=== PATIENT | female | born 1945 | race Caucasian/White ===

== ENCOUNTER 2025-02-23 05:33 | Inpatient (IN) ==
[2025-02-23] MEDS ORDERED: MAGNESIUM HYDROXIDE SUSP 30 ML UDC PO PRN (13:08)
[2025-02-23] MEDS ORDERED: ACETAMINOPHEN 325 MG TAB PO PRN (13:08)
[2025-02-23] MEDS ORDERED: NALOXONE HCL 0.4 MG/1 ML VIAL/CARP IV PRN (13:08)
--- NOTE | 2025-02-23 13:18 | History & Physical Report ---
Date of Service February 23, 2025 Assessment & Plan (1) Displaced fracture of right femoral neck: (2) Alcohol withdrawal: (3) Anemia: (4) Abdominal pain: (5) Diastolic heart failure: (6) Hypertension: (7) Hypercholesteremia: (8) Hypothyroidism: Plan 79 year old female with PMH significant for HFrEF, CAD, hypothyroidism, hypertension, hyperlipidemia, asymptomatic carotid artery stenosis, peripheral vascular disease, recurrent cellulitis, depression and anxiety who presented to [facility] On 02/23/2025 as a direct admit transferred from [facility] for a right hip fracture. Displaced fracture of right femoral neck Hip fracture due to fall at home Ortho consulted and recommending OR for hip hemiarthroplasty Tentative OR tomorrow pending medical clearance Bedrest/NWB RLE preop NPO, gentle fluids given HF PT/OT Pain control with IV tylenol and morphine PRN Alcohol withdrawal Patient notes daily intake of at least 18oz of wine Last drink around 0000 CIWA protocol Ativan PRN per CIWA scores Folic acid and thiamine Anemia Hematemesis Hgb drop from 7.9 at OSH to 7.3-> 7.2 here Per records previous Hgb around 10.7 outpatient Episode of emesis concerning for hematemesis KUB with nonobstructive bowel gas pattern Type and screen; blood consent obtained Iron profile WNL Vitamin B12 and folate pending IV protonix bid Trend H&H q6hr Consider GI consult for possible EGD if hgb continues to drop Abdominal pain Patient reported one episode of severe RUQ pain last night that has since resolved Appreciated tenderness on palpation Obtain liver ultrasound LFTs and lipase WNL CKD Per records previous creatinine 1.6 Creat 1.36 on admission HFrEF CAD Hypertension Hyperlipidemia Records obtained from [facility] Underwent cardiac cath during [facility] hospitalization 02/2024 which showed mild nonobstructive CAD, EF 40-45% at that time started on GDMT Last echo on 03/12/2024: EF 35-40%, moderate hypokinesis of entire myocardium, left atrium severely dilated, mild mitral annulus calcification, grade II diastolic dysfunction Continue Entresto, furosemide, spironolactone, metoprolol, atorvastatin Peripheral vascular disease Recent B/L LE arterial duplex revealed peripheral arterial disease of the lower extremities L > R, ROMI 0.39 on R and 0.93 on L Vascular mass noted in R groin/proximal thigh musculature measuring 16 x 3 x 7 cm done on 12/13/23, angiogram revealed Significant R SFA disease 80-90% managed medically She also has known moderate stenosis of the right external carotid artery Takes Plavix for this - holding for possible OR tomorrow Depression and anxiety Continue duloxetine and ativan PRN Hypothyroidism Continue levothyroxine Recurrent cellulitis On ciprofloxacin for this No evidence of cellulitis on exam DVT Prophylaxis: SCDs Code Status: FULL CODE - As per discussion at bedside with the patient. PCP: Ml Fragoso Disposition: transfer to PCU given alcohol withdrawal protocol Patient seen in collaboration with Dr Gomez. Please see addendum. I spent a total of 75 minutes coordinating, documenting and providing care for this patient excluding time spent in the performance of separately billed services or time spent by another provider/QHP. Admission and Anticipated Discharge Date Admission Date: February 23, 2025 History of Present Illness Chief Complaint: fall Primary Care Provider: Ml Fragoso MD 79 year old female with PMH significant for HFrEF, CAD, hypothyroidism, hypertension, hyperlipidemia, asymptomatic carotid artery stenosis, peripheral vascular disease, recurrent cellulitis, depression and anxiety who presented to [facility] On 02/23/2025 as a direct admit transferred from [facility] for a right hip fracture. Patient reports that she was folding and putting away laundry last night when she fell onto her right hip. Believes that she did hit her head but denies any loss of consciousness. Denies feeling dizzy or lightheaded prior to fall. Denies falling over any object. Admits she was drinking wine last night. After falling, she was unable to get herself up and used her watch to call her daughter for assistance. Her daughter arrived and called 911 and she was taken to [facility]. Records reviewed from [facility]: -CT head without contrast: 1. No evidence of acute intracranial abnormality is demonstrated 2. Chronic microvascular ischemic changes-stable 3. Cerebral atrophy-stable -XR hip 1 V w AP pelvis right: 1. Subcapital fracture right femoral neck with impaction 2. Diffuse osteoporosis 3. Interval new -CT spine cervical without contrast: 1. No acute fracture or subluxation in the cervical spine 2. Cervical spondylosis-stable 3. Old compression collapse with anterior wedging of T2 vertebral body -CBC: WBC 8.4, RBC 2.57, Hgb 7.9, Hct 25, MCV 97.3, MCH 30.7, MCHC 31.6, RDW-SD 53, RDW-CV 15.1, Plt 293, MPV 9.8 -CMP: eGFR 38, Glu 140, BUN 29, Creatinine 1.4, Protein 7.3, Albumin 3.8, Nancy bulin 3.5, Calcium 9.2, Total Bili 0.2, Sodium 138, Potassium 3.9, Chloride 109, CO2 19, Alk Phos 82, AST 23, ALT 26 -Mag 2.2 -Ethanol level: 147 Patient was examined at bedside. She reports 7/10 pain in her right hip. Was feeling nauseous and did vomit dark brown emesis. Notes she had an episode of severe RUQ pain last night that resolved spontaneously. Denies headache, dizziness, chest pain, SOB, abdominal pain, diarrhea. Reports she takes plavix but denies anticoagulation. Notes she used to fall a lot but this has been better lately. Lives at home alone. Uses a walker and a cane for ambulation. Admits to smoking cigarettes daily and daily alcohol use consisting of 2 glasses of wine. Also takes ativan as needed for tremors less than daily. Patient's daughter arrived and shared that patient was hospitalized about 1.5 years ago for CHF and flash pulmonary edema. Has been doing better since being started on heart medications. Follows with Cardiology through [facility] in [place]. Daughter notes cognitive decline since this hospitalization but notes that patient is at her baseline. Agrees that patient has not fallen recently, previous to admission 1.5 years ago was falling frequently. Notes she has extensive vascular disease in her right leg that patient follows with Dr Nelson for and was recommended to have vascular surgery, which patient declined. Also reports patient drinks a lot of wine daily and has gone through elective withdrawal in the past. Denies alcohol withdrawal seizures. Allergies Allergy/AdvReac Type Severity Reaction Status Date / Time metformin Allergy Mild Diarrhea Verified 02/23/25 14:51 ezetimibe [From Vytorin] Allergy Unknown Verified 02/23/25 14:38 lactose Allergy Unknown Diarrhea Verified 02/23/25 14:38 linagliptin [From Tradjenta] Allergy Unknown Diarrhea Verified 02/23/25 14:38 meperidine [From Demerol] Allergy Unknown Vomiting Verified 02/23/25 14:38 simvastatin [From Vytorin] Allergy Unknown Verified 02/23/25 14:38 chlorhexidine Allergy Rash Verified 02/23/25 14:51 erythromycin base Allergy Nausea Verified 02/23/25 14:51 paroxetine [From Paxil] AdvReac Unknown hostility Verified 02/23/25 14:38 Home Medications Medication Instructions Recorded Confirmed Type atorvastatin 40 mg tablet 40 mg PO DAILY 02/23/25 02/23/25 History ciprofloxacin HCl 500 mg tablet 500 mg PO Q12H 02/23/25 02/23/25 History (Cipro) clopidogrel 75 mg tablet 75 mg PO DAILY 02/23/25 02/23/25 History coQ10 (ubiquinol) 100 mg capsule 100 mg PO BID 02/23/25 02/23/25 History duloxetine 30 mg capsule,delayed 30 mg PO DAILY 02/23/25 02/23/25 History release ferrous gluconate 324 mg (38 mg 324 mg PO DAILY 02/23/25 02/23/25 History iron) tablet furosemide 20 mg tablet 20 mg PO DAILY 02/23/25 02/23/25 History levothyroxine 50 mcg tablet 50 mcg PO DAILY 02/23/25 02/23/25 History lorazepam 0.5 mg tablet 0.5 mg PO DAILY PRN rls 02/23/25 02/23/25 History magnesium glycinate 100 mg (as 200 mg PO DAILY 02/23/25 02/23/25 History glycinate) tablet metoprolol succinate 25 mg 25 mg PO DAILY 02/23/25 02/23/25 History tablet,extended release 24 hr sacubitril 49 mg-valsartan 51 mg 1 tab PO BID 02/23/25 02/23/25 History tablet (Entresto) spironolactone 25 mg tablet 25 mg PO DAILY 02/23/25 02/23/25 History tiotropium bromide 2.5 2 inh inhalation QAM PRN 02/23/25 02/23/25 History mcg/actuation mist for inhalation sob/wheezing (Spiriva Respimat) vitamin B complex 1 cap PO DAILY 02/23/25 02/23/25 History Past Med/Surg History Problem List (Updated 02/23/25 @ 15:19 by STEVE Dillon) Anemia Anxiety Depression Abdominal pain Alcohol withdrawal Displaced fracture of right femoral neck Varicose vein of leg Diastolic heart failure Carotid stenosis, asymptomatic Hypothyroidism Hypercholesteremia Hypertension Medical History (Updated 02/23/25 @ 15:19 by STEVE Dillon) Diabetes mellitus Idiopathic polyneuropathy Ulnar neuropathy at elbow of left upper extremity Muscle weakness (generalized) Arthritis Surgical History History of hysterectomy Hx of appendectomy Hx of tonsillectomy Family History Father Myocardial infarction Sister Lung cancer Social History (Updated 02/23/25 @ 15:15 by STEVE Dillon) Smoking Status: Current every day smoker Tobacco Type: Cigarettes Cigarettes Per Day: 15; Hx Alcohol Use: Yes Alcohol type: wine Alcohol Intake Frequency: 4 or More x per/Week Alcohol Intake Frequency Comment: two glasses daily Hx Substance Use: No Preferred Language: Australian Nurse Administrator Required: No Beliefs That Will Affect Care: None Current Living Situation: Alone Feels Safe at Home: Yes Assistive Devices: Cane, Glasses and Walker Review of Systems Review of Systems: All systems reviewed & are unremarkable except as noted in HPI & below Physical Exam Physical Exam: General/Psych: WD/WN, sitting up in bed, NAD, conversing easily, easily distracted, difficult completing thoughts Head: normocephalic, atraumatic Eyes: normal inspection, PERRL, conjunctivae pink, anicteric sclerae ENT: external ear and nose normal, oropharynx normal Neck: normal visual inspection, trachea midline Respiratory: normal respiratory effort, lungs with expiratory wheezing appreciated, no accessory muscle use Cardiovascular: regular rate and rhythm, no murmur/rub/gallop, no JVD Extremities: no cyanosis or clubbing, normal peripheral pulses, no BLE edema Abdomen/GI: normal bowel sounds, soft, tender on palpation of RUQ : Mills in place Neurologic/MSK: A+Ox3, moves all extremities, sensation intact BLE, unable to move right leg Skin: no rashes, normal color, warm and dry Results & Data Results & Data Vital Signs (Past 12 Hours) Vital Signs Temp Resp BP Pulse Ox O2 Del Method 02/23/25 13:06 36.9 C 17 153/64 H 97 Room Air Laboratory Results Short CBC 07/22/25 Range/Units 14:10 WBC 7.80 (4.8-10.8) K/ul Hgb 7.3 L (12.0-16.0) g/dl Hct 23.5 L (37.0-47.0) % Plt Count 266 (130-400) K/uL BMP 02/23/25 14:10 Sodium 139 Potassium 4.3 Chloride 109 H Carbon Dioxide 23 BUN 31 H Creatinine 1.36 H Glucose 124 H Calcium 9.3 Liver Function 02/23/25 Range/Units 14:10 Total Bilirubin 0.4 (0.2-1.0) mg/dl AST 17 (13-39) U/L ALT 13 (7-52) U/L Alkaline Phosphatase 65 (34-104) U/L Albumin 4.1 (3.4-5.0) gm/dl I have independently reviewed and interpreted patient's admitting labs including CBC, CMP ECG Additional Comments: I have independently reviewed and interpreted patient's admitting EKG which revealed: NSR at a rate of 70 bpm Code Status & VTE Plan Code Status Full Code VTE Prophylaxis Plan VTE Prophylaxis will be ordered: Yes Supervising Physician Co-Signing Physician Notes I have seen and discussed the case with the collaborating advanced practitioner. I agree with the above H&P. I have reviewed and confirmed the patients medical history, the findings on physical examination, and the patients diagnosis and treatment plan with Felipe WILSON and agree with the information documented. In short, Ms Reyes is an 79 year old female with PMH significant for CHF, hypothyroidism, hypertension, hyperlipidemia, asymptomatic carotid artery stenosis, depression and anxiety who is a direct admit for right hip fracture. She drinks atleast 3-4 glasses of wine daily and sustained a fall. She states she has been tapered off of alcohol in the past and denies any history of acute withdrawal complications like seizures. Patient is a bit confused, but oriented to self, place, situation and time. Her last drink was midnight. She reports extreme confusion with gabapentin. Will transfer to PCU ( but house in ICU incase phenobarbital needed). No signs of withdrawal at this time. Reports of hematemesis, will keep npo, IV PPI BID, anemia labs, consult GI. I spent a total of 35 minutes coordinating, documenting, and providing care for this patient excluding time spent in the performance of separately billed services. All of the aforementioned completed outside of collaborating with the assigned advanced practitioner for a full treatment plan. I have reviewed the advanced practitioner's documentation, and I agree with, and take responsibility for the plan of care
[2025-02-23] MEDS: ONDANSETRON INJ 2 MG/ML 2 ML VIAL IV PRN (13:45)
[2025-02-23 14:26] LABS: Hematocrit (blood only) 23.5 % (37.0-47.0); Hemoglobin 7.3 g/dl (12.0-16.0); Immature Granulocytes # (auto) 0.04 K/uL (0.01-0.20); Immature Granulocytes % (auto) 0.5 %; Mean Corpuscular Hemoglobin 30.0 pg (25.0-34.0); Mean Corpuscular Volume 96.7 fL (80.0-100.0); Platelet Count 266 K/uL (130-400); RDW Standard Deviation 53.5 fL (36.4-46.3); Red Blood Count 2.43 M/uL (4.20-5.40); White Blood Count 7.80 K/ul (4.8-10.8)
[2025-02-23] MEDS ORDERED: MoRPHine SULFATE 2 MG/ML CARP IV PRN (14:44)
[2025-02-23 14:47] LABS: Alanine Aminotransferase 13.0 U/L (7-52); Albumin Globulin Ratio 1.6 (0.9-2); Alkaline Phosphatase 65.0 U/L (34-104); Anion Gap 7.0 (3-11); Bilirubin,Total 0.4 mg/dl (0.2-1.0); Blood Urea Nitrogen 31.0 mg/dl (6-23); Calcium 9.3 mg/dl (8.6-10.3); Carbon Dioxide 23.0 mmol/L (21-32); Chloride 109.0 mmol/L (98-107); Creatinine Clr Calc Pharmacy 26.8 ml/min; Globulin 2.5 gm/dl (2.5-4.0); Glucose 124.0 mg/dl (70-99(Fasting)); Potassium 4.3 mmol/L (3.5-5.1); Sodium 139.0 mmol/L (136-145); Total Protein 6.6 gm/dl (6.0-8.3)
[2025-02-23 15:06] LABS: RBC Morphology Unremarkable
--- NOTE | 2025-02-23 15:07 | Orthopedic Consultation ---
Date of Service February 23, 2025 Assessment & Plan (1) Displaced fracture of right femoral neck: * Case/imaging reviewed and discussed with Dr Verdugo * Recommend OR for hip hemiarthroplasty * Tentative OR 02/24 pending medical clearance * Bedrest/nonweightbearing preop * N.p.o. midnight * Disposition: TBD * Daily treatment: Physical Therapy/ Occupational Therapy per protocol * Weight bearing status: NWB * Pain control * Remainder care per primary team History of Present Illness Reason for Consultation: Right hip pain Requesting Physician: . Attending Physician: Haris Mcclain MD . Patient is a 79y/o female with right hip pain. PMH including heart failure, carotid stenosis, hypothyroid, diabetes, hypercholesterolemia, HTN. Presents to hospital with right hip pain after a fall. Per report patient fell at home last night, significant right hip pain, unable to ambulate. Initially brought to [facility] in [place], workup including x-ray right hip demonstrating displaced femoral neck fracture, transferred to [facility] for orthopedic consultation. Currently admitted to hospital medicine team, orthopedics consulted for management recommendations. At time of exam patient lying comfortably in bed, no acute distress. Endorses mild to moderate pain of the right hip that increases with attempted use. Denies tingling numbness of the right lower extremity. No assistive devices at baseline.. Allergies Allergy/AdvReac Type Severity Reaction Status Date / Time metformin Allergy Mild Diarrhea Verified 02/23/25 14:51 ezetimibe [From Vytorin] Allergy Unknown Verified 02/23/25 14:38 lactose Allergy Unknown Diarrhea Verified 02/23/25 14:38 linagliptin [From Tradjenta] Allergy Unknown Diarrhea Verified 02/23/25 14:38 meperidine [From Demerol] Allergy Unknown Vomiting Verified 02/23/25 14:38 simvastatin [From Vytorin] Allergy Unknown Verified 02/23/25 14:38 chlorhexidine Allergy Rash Verified 02/23/25 14:51 erythromycin base Allergy Nausea Verified 02/23/25 14:51 paroxetine [From Paxil] AdvReac Unknown hostility Verified 02/23/25 14:38 Home Medications Medication Instructions Recorded Confirmed Type atorvastatin 40 mg tablet 40 mg PO DAILY 02/23/25 02/23/25 History ciprofloxacin HCl 500 mg tablet 500 mg PO Q12H 02/23/25 02/23/25 History (Cipro) clopidogrel 75 mg tablet 75 mg PO DAILY 02/23/25 02/23/25 History coQ10 (ubiquinol) 100 mg capsule 100 mg PO BID 02/23/25 02/23/25 History duloxetine 30 mg capsule,delayed 30 mg PO DAILY 02/23/25 02/23/25 History release ferrous gluconate 324 mg (38 mg 324 mg PO DAILY 02/23/25 02/23/25 History iron) tablet furosemide 20 mg tablet 20 mg PO DAILY 02/23/25 02/23/25 History levothyroxine 50 mcg tablet 50 mcg PO DAILY 02/23/25 02/23/25 History lorazepam 0.5 mg tablet 0.5 mg PO DAILY PRN rls 02/23/25 02/23/25 History magnesium glycinate 100 mg (as 200 mg PO DAILY 02/23/25 02/23/25 History glycinate) tablet metoprolol succinate 25 mg 25 mg PO DAILY 02/23/25 02/23/25 History tablet,extended release 24 hr sacubitril 49 mg-valsartan 51 mg 1 tab PO BID 02/23/25 02/23/25 History tablet (Entresto) spironolactone 25 mg tablet 25 mg PO DAILY 02/23/25 02/23/25 History tiotropium bromide 2.5 2 inh inhalation QAM PRN 02/23/25 02/23/25 History mcg/actuation mist for inhalation sob/wheezing (Spiriva Respimat) vitamin B complex 1 cap PO DAILY 02/23/25 02/23/25 History Past Med/Surg History Problem List (Updated 02/23/25 @ 15:19 by STEVE Dillon) Anemia Anxiety Depression Abdominal pain Alcohol withdrawal Displaced fracture of right femoral neck Varicose vein of leg Diastolic heart failure Carotid stenosis, asymptomatic Hypothyroidism Hypercholesteremia Hypertension Medical History (Updated 02/23/25 @ 15:19 by STEVE Dillon) Diabetes mellitus Idiopathic polyneuropathy Ulnar neuropathy at elbow of left upper extremity Muscle weakness (generalized) Arthritis Surgical History History of hysterectomy Hx of appendectomy Hx of tonsillectomy Family History Father Myocardial infarction Sister Lung cancer Social History (Updated 02/23/25 @ 15:15 by STEVE Dillon) Smoking Status: Current every day smoker Tobacco Type: Cigarettes Cigarettes Per Day: 15; Hx Alcohol Use: Yes Alcohol type: wine Alcohol Intake Frequency: 4 or More x per/Week Alcohol Intake Frequency Comment: two glasses daily Hx Substance Use: No Preferred Language: Mauritian Secondary History Teacher Required: No Beliefs That Will Affect Care: None Current Living Situation: Alone Feels Safe at Home: Yes Assistive Devices: Cane, Glasses and Walker Review of Systems All systems reviewed & are unremarkable except as noted in HPI & below. Physical Exam . * General: Alert and oriented, no acute distress * Constitutional: well-developed, well-nourished. * Respiratory: Normal respiratory effort, no distress * Gastrointestinal: No tenderness to palpation, no rigidity or guarding. * Skin: No rash or lesion. * Neurologic: Grossly normal * Musculoskeletal: Right lower extremity shortened and externally rotated. Otherwise no obvious deformity or overlying skin changes to the right leg. TTP diffusely proximal thigh and lateral hip region. Otherwise no specific tenderness of the distal thigh, knee, lower leg, foot/ankle. Pain with logroll, otherwise ROM hip not assessed. AROM foot/ankle intact. Sensation intact plantar/dorsal foot. Brisk capillary fill. Results & Data Results & Data Laboratory Results . 02/23/25 14:10 WBC 7.80 RBC 2.43 L Hgb 7.3 L Hct 23.5 L MCV 96.7 MCH 30.0 MCHC 31.1 L RDW Std Deviation 53.5 H RDW Coeff of Magdy 15.0 H Plt Count 266 MPV 9.5 Immature Gran % (Auto) 0.5 Neut % (Auto) 82.7 Lymph % (Auto) 8.2 [place] % (Auto) 7.2 Eos % (Auto) 0.4 Baso % (Auto) 1.0 Neut # (Auto) 6.45 Lymph # (Auto) 0.64 L [place] # (Auto) 0.56 Eos # (Auto) 0.03 Baso # (Auto) 0.08 Immature Gran # (Auto) 0.04 Sodium 139 Potassium 4.3 Chloride 109 H Carbon Dioxide 23 Anion Gap 7 BUN 31 H Creatinine 1.36 H Est Cr Clr Drug Dosing 26.8 eGFR 39.13 BUN/Creatinine Ratio 22.8 H Glucose 124 H Calcium 9.3 Total Bilirubin 0.4 AST 17 ALT 13 Alkaline Phosphatase 65 Total Protein 6.6 Albumin 4.1 Globulin 2.5 Albumin/Globulin Ratio 1.6 Diagnostic Findings External report X-ray right hip: Displaced femoral neck fracture PG Care Time/CCT Total # of Minutes Spent Total Time Spent with Patient: Total time spent is greater than 50% in coordination of care (as documented) at patient's floor/unit and/or counseling patient: [place] [address] IN/OBS CONSULT LVL 5,80M Patient Type New Medical Decision Making Moderate Complexity Diagnoses Displaced fracture of right femoral neck S72.001A
--- NOTE | 2025-02-23 16:13 | XRay Report ---
Study: Pelvis 1 view, right femur 2 view History: Pre-op Comparison: None Findings/impression: Fracture of the right femoral neck with foreshortening. Joint spaces are well maintained. There is no joint effusion or significant soft tissue swelling. Bone mineralization is decreased. Prominent vascular calcifications. Electronically signed by Fabrice Jaramillo 02-23-2025 4:13 PM
[2025-02-23 16:33] LABS: Hematocrit (blood only) 22.9 % (37.0-47.0); Hemoglobin 7.2 g/dl (12.0-16.0)
[2025-02-23 16:34] LABS: Reticulated Hemoglobin 30.8 pg (28.2-36.6); Reticulocytes # 0.130 10^6/uL (0.020-0.100)
--- NOTE | 2025-02-23 16:43 | XRay Report ---
Abdominal radiograph, one view History: Abdominal pain Comparison: None Findings: Single AP view of the abdomen performed. The bowel gas pattern appears nonobstructive. No pneumatosis or portal venous gas. No abnormal calcifications project over the abdomen. Right femoral neck fracture again seen. Degenerative changes of the spine. Impression: Nonobstructive bowel gas pattern Electronically signed by Fabrice Jaramillo 02-23-2025 4:43 PM
[2025-02-23 16:47] LABS: Iron 38.0 mcg/dl (35-150); Lipase 14.0 U/L (11-82); Total Iron Binding Cap Calc 447.0 mcg/dl (250-450); Transferrin 319.0 mg/dl (200-360); Transferrin (FE) Percent Satur 9.0 % (15-50)
[2025-02-23 17:00] LABS: INR 0.9 (0.9-1.1); Prothrombin Time 10.3 Seconds (9.0-12.0)
[2025-02-23 17:08] LABS: Ferritin 20.5 ng/ml (8-388)
[2025-02-23 17:14] LABS: Folate (Folic Acid),Ser orPlas 12.28 ng/ml (>5.38)
[2025-02-23 17:15] LABS: Vitamin B12 388.0 pg/ml (180-914)
[2025-02-23] MEDS: THIAMINE HCL 100 MG in SYRINGE 9 ML IV STA (17:16)
[2025-02-23] MEDS ORDERED: LORazepam 0.5 MG TAB PO PRN (17:16)
[2025-02-23] MEDS: SODIUM CHLORIDE 0.9% 1,000 ML IV SCH (17:17)
[2025-02-23] MEDS: IRON SUCROSE 300 MG in SODIUM CHLORIDE 0.9% 250 ML IV ONE (17:56)
--- NOTE | 2025-02-23 19:49 | Ultrasound Report ---
Clinical history: Right upper quadrant pain Technique: Sonography was performed of the right upper quadrant of the abdomen Findings: There is suspected mild fatty infiltration of the liver. No definite liver mass is seen. There is normal directional flow in the main portal vein There is no evidence of cholelithiasis or cholecystitis. The gallbladder has a normal wall thickness and no adjacent fluid is seen. No definite sonographic Samano sign was detected. There is no definite intrahepatic bile duct dilatation. The common bile duct measures up to 7 mm, which is 90 dilated. No clear obstructing lesion is seen The right kidney appears unremarkable. There is no hydronephrosis. No definite renal calculus or mass is seen The visualized pancreas, aorta, and IVC appear unremarkable. No ascites is seen Impression: 1. Mild fatty infiltration of the liver 2. Normal-appearing gallbladder 3. Mild bile duct dilatation. No clear obstructing lesion is identified Electronically signed by Zaire Ruiz 02-23-2025 7:48 PM
[2025-02-23] MEDS: MoRPHine SULFATE 2 MG/ML CARP IV PRN (20:26)
[2025-02-23] MEDS: VALSARTAN/SACUBITRIL 51/49 MG TAB PO SCH (20:27)
[2025-02-23] MEDS: PANTOprazole 40 MG/10 ML SYR IV SCH (20:27)
[2025-02-24 00:03] LABS: Hematocrit (blood only) 22.6 % (37.0-47.0); Hemoglobin 6.9 g/dl (12.0-16.0)
[2025-02-24] MEDS ORDERED: SODIUM CHLORIDE 0.9% 100 ML IV PRN ×3 (00:03→14:55)
[2025-02-24] MEDS: LEVOTHYROXINE SODIUM 50 MCG TABLET PO SCH (05:14)
[2025-02-24 05:18] LABS: Hematocrit (blood only) 27.7 % (37.0-47.0); Hemoglobin 8.7 g/dl (12.0-16.0); Immature Granulocytes # (auto) 0.04 K/uL (0.01-0.20); Immature Granulocytes % (auto) 0.6 %; Mean Corpuscular Hemoglobin 30.6 pg (25.0-34.0); Mean Corpuscular Volume 97.5 fL (80.0-100.0); Platelet Count 236 K/uL (130-400); RDW Standard Deviation 52.9 fL (36.4-46.3); Red Blood Count 2.84 M/uL (4.20-5.40); White Blood Count 7.09 K/ul (4.8-10.8)
[2025-02-24 05:35] LABS: Anion Gap 6.0 (3-11); Blood Urea Nitrogen 24.0 mg/dl (6-23); Calcium 8.6 mg/dl (8.6-10.3); Carbon Dioxide 20.0 mmol/L (21-32); Chloride 113.0 mmol/L (98-107); Creatinine Clr Calc Pharmacy 30.7 ml/min; Glucose 97.0 mg/dl (70-99(Fasting)); Magnesium 1.9 mg/dl (1.7-2.4); Potassium 4.2 mmol/L (3.5-5.1); Sodium 139.0 mmol/L (136-145)
[2025-02-24] MEDS: FOLIC ACID 1 MG TAB PO SCH (08:09)
[2025-02-24] MEDS: METOPROLOL SUCC 25MG EXT REL TAB PO SCH (08:09)
[2025-02-24] MEDS: FERROUS GLUCONATE 324 MG TAB PO SCH (08:09)
[2025-02-24] MEDS: THIAMINE HCL 100 MG TAB PO SCH (08:09)
[2025-02-24] MEDS: MAGNESIUM OXIDE 400 MG TAB PO SCH (08:09)
[2025-02-24] MEDS: ATORVASTATIN 40 MG TAB PO SCH (08:09)
--- NOTE | 2025-02-24 09:15 | Gastrointestinal Consultation ---
Date of Consultation February 24, 2025 Assessment & Plan (1) Anemia: 79 year old female with history of anxiety, depression, hypothyroidism, HTN, HFrEF, CAD, hyperlipidemia, asymptomatic carotid artery stenosis, peripheral vascular disease, recurrent cellulitis admitted for management of a right hip fracture - GI was asked to evaluate for GI bleed. 1. Coffee ground emesis/hematemesis w/ anemia requiring transfusion NPO EGD evaluation - Risks, benefits, alternative discussed IV PPI bolus/drip Trend HGB Monitor and document GI output Transfuse PRN 2. ABD pain, CBD dilation - CBD 7 mm - LFTs normal - Pain resolved - If returns, recommend MRCP imaging We appreciate assistance in the management of any serological abnormality and corrections to include: hemoglobin >7, INR <2, platelets >50,000, potassium levels >3.5 but <5.3, and sodium levels within 5 points of the reference range prior to endoscopic evaluation. Thank you for allowing us to participate in the care of this patient. Please call with any acute changes, questions or concerns. Please see addendum below with additional recommendation from my supervising physician. I spent a total of 60 minutes on the date of service in review of patient's record, and previously obtained information in person and appropriate medical visit, discussion and education of plan, with patient and/or caregiver, placing orders for tests/referral/procedures as medically necessary and documentation of pertinent clinical information in patient's medical records for their visit today. Supervising Physician Co-Signing Physician Notes Hip fracture. The patient is also had coffee-ground emesis. She states she has been having heartburn indigestion leading up to this. Had purchased some Pepto- Bismol [id number]. This could account for the dark emesis. Blood counts however dropped somewhat which could again be related to her hip fracture. However patient is on Plavix she will likely get perioperative anticoagulation I think an EGD would be helpful to evaluate risk of gastrointestinal bleeding with surgery and anticoagulation. Discussed risks and benefits with the patient she is agreeable to proceed today. History of Present Illness Reason for Consultation: coffee ground emesis Requesting Physician: Ty Merida DO Attending Physician: Ty Merida DO History of Present Illness 79 year old female with history of anxiety, depression, hypothyroidism, HTN, HFrEF, CAD, hyperlipidemia, asymptomatic carotid artery stenosis, peripheral vascular disease, recurrent cellulitis admitted for management of a right hip fracture - GI was asked to evaluate for GI bleed. Pt was seen and evaluated, chart reviewed. She is somewhat of a poor historian. Suggests prior to arrival at our facility she had extreme nausea w/ emesis. She notes the first 2/3 emesis were food/bile. But later she saw vomit that appeared to be coffee ground and also mixed with some bright red blood. She notes she has had dark stools "all summer." She uses pepto frequently and is also on a a daily iron supplement. On Plavix Denies NSAIDs Daily ETOH use S/P 1 unit RBC HGB 6.9 --> 8.7 Denies any recent EGD/Colonoscopy ABD US w/ fatty liver changes, CBD 7 mm Allergies Allergy/AdvReac Type Severity Reaction Status Date / Time metformin Allergy Mild Diarrhea Verified 02/23/25 14:51 ezetimibe [From Vytorin] Allergy Unknown Verified 02/23/25 14:38 lactose Allergy Unknown Diarrhea Verified 02/23/25 14:38 linagliptin [From Tradjenta] Allergy Unknown Diarrhea Verified 02/23/25 14:38 meperidine [From Demerol] Allergy Unknown Vomiting Verified 02/23/25 14:38 simvastatin [From Vytorin] Allergy Unknown Verified 02/23/25 14:38 chlorhexidine Allergy Rash Verified 02/23/25 14:51 erythromycin base Allergy Nausea Verified 02/23/25 14:51 paroxetine [From Paxil] AdvReac Unknown hostility Verified 02/23/25 14:38 Home Medications Medication Instructions Recorded Confirmed Type atorvastatin 40 mg tablet 40 mg PO DAILY 02/23/25 02/23/25 History ciprofloxacin HCl 500 mg tablet 500 mg PO Q12H 02/23/25 02/23/25 History (Cipro) clopidogrel 75 mg tablet 75 mg PO DAILY 02/23/25 02/23/25 History coQ10 (ubiquinol) 100 mg capsule 100 mg PO BID 02/23/25 02/23/25 History duloxetine 30 mg capsule,delayed 30 mg PO DAILY 02/23/25 02/23/25 History release ferrous gluconate 324 mg (38 mg 324 mg PO DAILY 02/23/25 02/23/25 History iron) tablet furosemide 20 mg tablet 20 mg PO DAILY 02/23/25 02/23/25 History levothyroxine 50 mcg tablet 50 mcg PO DAILY 02/23/25 02/23/25 History lorazepam 0.5 mg tablet 0.5 mg PO DAILY PRN rls 02/23/25 02/23/25 History magnesium glycinate 100 mg (as 200 mg PO DAILY 02/23/25 02/23/25 History glycinate) tablet metoprolol succinate 25 mg 25 mg PO DAILY 02/23/25 02/23/25 History tablet,extended release 24 hr sacubitril 49 mg-valsartan 51 mg 1 tab PO BID 02/23/25 02/23/25 History tablet (Entresto) spironolactone 25 mg tablet 25 mg PO DAILY 02/23/25 02/23/25 History tiotropium bromide 2.5 2 inh inhalation QAM PRN 02/23/25 02/23/25 History mcg/actuation mist for inhalation sob/wheezing (Spiriva Respimat) vitamin B complex 1 cap PO DAILY 02/23/25 02/23/25 History Patient History Medical History Diabetes mellitus Idiopathic polyneuropathy Ulnar neuropathy at elbow of left upper extremity Muscle weakness (generalized) Arthritis Surgical History History of hysterectomy Hx of appendectomy Hx of tonsillectomy Family History Father Myocardial infarction Sister Lung cancer Social History (Updated 02/23/25 @ 15:15 by STEVE Dillon) Smoking Status: Current every day smoker Tobacco Type: Cigarettes Cigarettes Per Day: 15; Hx Alcohol Use: Yes Alcohol type: wine Alcohol Intake Frequency: 4 or More x per/Week Alcohol Intake Frequency Comment: two glasses daily Hx Substance Use: No Preferred Language: Yakut Communication Ability: Effective Fruit Loader Required: No Beliefs That Will Affect Care: None Current Living Situation: Alone Feels Safe at Home: Yes Assistive Devices: Cane and Walker Review of Systems Review of Systems: All other findings negative except as noted in HPI. Physical Exam Constitutional: WD/WN, vitals as above Gastrointestinal (Abdomen): normal bowel sounds, soft, nontender, no hepatosplenomegaly Skin: no rashes, warm and dry Results & Data Vital Signs (Past 12 Hours) Vital Signs Temp Pulse Pulse Resp BP BP Pulse Ox 02/24/25 08:00 126/52 L 02/24/25 08:00 64 17 93 02/24/25 08:00 98.1 F 02/24/25 07:04 71 02/24/25 07:00 116/68 02/24/25 07:00 60 17 93 02/24/25 05:00 02/24/25 02:55 98.1 F 78 17 129/74 98 02/24/25 02:31 68 02/24/25 01:55 98.1 F 70 18 130/57 L 99 02/24/25 01:25 98.1 F 70 20 132/67 98 02/24/25 01:10 98.1 F 71 21 109/75 99 02/24/25 01:00 02/24/25 00:51 98.1 F 70 15 133/60 97 02/23/25 23:57 98.1 F 67 17 124/76 97 O2 Del Method O2 Del Method O2 Flow Rate O2 Flow Rate 02/24/25 08:00 02/24/25 08:00 02/24/25 08:00 02/24/25 07:04 02/24/25 07:00 02/24/25 07:00 Room Air 02/24/25 05:00 Room Air 02/24/25 02:55 2 02/24/25 02:31 02/24/25 01:55 2 02/24/25 01:25 2 02/24/25 01:10 2 02/24/25 01:00 Nasal Cannula 2 02/24/25 00:51 2 02/23/25 23:57 Nasal Cannula 2 PG Care Time/CCT Total # of Minutes Spent Total Time Spent with Patient: Total time spent is greater than 50% in coordination of care (as documented) at patient's floor/unit and/or counseling patient: Coding Level of Care Code 50201 INT INP/OBS CARE 2/55MIN Diagnoses Anemia D64.9
[2025-02-24] MEDS ORDERED: PROPOFOL IV EMULSION 10 MG/ML 20 ML VIAL IV ONE ×2 (12:03→12:21)
[2025-02-24] MEDS ORDERED: VASOPRESSIN 20 UNIT/ML VIAL ONE (12:03)
[2025-02-24] MEDS ORDERED: DEXAMETHASONE SOD INJ 4 MG/ML VIAL ONE (12:03)
[2025-02-24] MEDS ORDERED: PHENYLEPHRINE HCL 10 MG/ML VIAL ONE (12:03)
[2025-02-24] MEDS ORDERED: ONDANSETRON INJ 2 MG/ML 2 ML VIAL ONE ×2 (12:03→12:21)
[2025-02-24] MEDS ORDERED: ETOMIDATE 2 MG/ML 20 ML VIAL IV ONE (12:03)
[2025-02-24] MEDS ORDERED: PHENYLEPHRINE 100MCG/ML 5ML SYR ONE (12:03)
[2025-02-24] MEDS ORDERED: ROCURONIUM BROMIDE 10 MG/ML 5 ML VIAL IV ONE (12:03)
[2025-02-24] MEDS ORDERED: LIDOCAINE 2% 2 ML VIAL/AMP(20MG/ML) INFIL ONE (12:21)
[2025-02-24] MEDS ORDERED: ONDANSETRON INJ 2 MG/ML 2 ML VIAL IV PRN (12:37)
[2025-02-24] MEDS ORDERED: ATROPINE SULFATE 0.1 MG/ML 10ML SYR IV PRN (12:37)
[2025-02-24] MEDS ORDERED: HYDROmorphone INJ 1 MG/ML SYRINGE IV PRN (12:37)
--- NOTE | 2025-02-24 12:39 | Anesthesiology Consultation ---
Date of Service February 24, 2025 Assessment & Plan ASA ASA3 Proposed Anesthesia Anesthesia Type: General Risk / Benefits Reviewed With: PT / POA / Parent / Guardian, Accepts Plan and Informed Consent Obtained History Surgery Operation Date: 02/24/25 13:00 Proposed Procedures p Right Hip Cemented Bipolar - Edy Verdugo MD s Esophagogastroduodenoscopy - Giovanny Castillo MD Operation Date: 02/24/25 16:30 Proposed Procedures p Esophagogastroduodenoscopy Dr. Castillo - Giovanny Castillo MD Height/Weight Height: 5 ft 3 in Weight: 60.8 kg Allergies Allergy/AdvReac Type Severity Reaction Status Date / Time metformin Allergy Mild Diarrhea Verified 02/23/25 14:51 ezetimibe [From Vytorin] Allergy Unknown Verified 02/23/25 14:38 lactose Allergy Unknown Diarrhea Verified 02/23/25 14:38 linagliptin [From Tradjenta] Allergy Unknown Diarrhea Verified 02/23/25 14:38 meperidine [From Demerol] Allergy Unknown Vomiting Verified 02/23/25 14:38 simvastatin [From Vytorin] Allergy Unknown Verified 02/23/25 14:38 chlorhexidine Allergy Rash Verified 02/23/25 14:51 erythromycin base Allergy Nausea Verified 02/23/25 14:51 paroxetine [From Paxil] AdvReac Unknown hostility Verified 02/23/25 14:38 Medications Home Medications Medication Instructions Recorded Confirmed Last Taken atorvastatin 40 mg tablet 40 mg PO DAILY 02/23/25 02/23/25 Unknown ciprofloxacin HCl 500 mg tablet 500 mg PO Q12H 02/23/25 02/23/25 Unknown (Cipro) clopidogrel 75 mg tablet 75 mg PO DAILY 02/23/25 02/23/25 Unknown coQ10 (ubiquinol) 100 mg capsule 100 mg PO BID 02/23/25 02/23/25 Unknown duloxetine 30 mg capsule,delayed 30 mg PO DAILY 02/23/25 02/23/25 Unknown release ferrous gluconate 324 mg (38 mg 324 mg PO DAILY 02/23/25 02/23/25 Unknown iron) tablet furosemide 20 mg tablet 20 mg PO DAILY 02/23/25 02/23/25 Unknown levothyroxine 50 mcg tablet 50 mcg PO DAILY 02/23/25 02/23/25 Unknown lorazepam 0.5 mg tablet 0.5 mg PO DAILY PRN rls 02/23/25 02/23/25 Unknown magnesium glycinate 100 mg (as 200 mg PO DAILY 02/23/25 02/23/25 Unknown glycinate) tablet metoprolol succinate 25 mg 25 mg PO DAILY 02/23/25 02/23/25 Unknown tablet,extended release 24 hr sacubitril 49 mg-valsartan 51 mg 1 tab PO BID 02/23/25 02/23/25 Unknown tablet (Entresto) spironolactone 25 mg tablet 25 mg PO DAILY 02/23/25 02/23/25 Unknown tiotropium bromide 2.5 2 inh inhalation QAM PRN 02/23/25 02/23/25 Unknown mcg/actuation mist for inhalation sob/wheezing (Spiriva Respimat) vitamin B complex 1 cap PO DAILY 02/23/25 02/23/25 Unknown Active Medications Generic Name Dose Route Start Last Admin Trade Name Freq PRN Reason Stop Dose Admin Atorvastatin Calcium 40 mg 02/24/25 09:00 02/24/25 08:09 Atorvastatin 40 Mg Tab PO 03/26/25 08:59 40 mg DAILY MATTHEW Administration Duloxetine HCl 30 mg 02/24/25 09:00 02/24/25 08:09 Duloxetine Hcl 30 Mg Cap PO 03/26/25 08:59 30 mg DAILY MATTHEW Administration Ferrous Gluconate 324 mg 02/24/25 09:00 02/24/25 08:09 Ferrous Gluconate 324 Mg Tab PO 03/26/25 08:59 324 mg DAILY MATTHEW Administration Folic Acid 1 mg 02/24/25 09:00 02/24/25 08:09 Folic Acid 1 Mg Tab PO 03/26/25 08:59 1 mg QAM MATTHEW Administration Pantoprazole Sodium 40 mg in 10 mls @ 5 mls/min 02/23/25 21:00 02/24/25 08:10 Protonix IV 03/25/25 20:59 5 mls/min BID MATTHEW Administration Sodium Chloride 1,000 mls @ 80 mls/hr 02/23/25 14:45 02/24/25 08:08 Nss IV 02/26/25 14:44 80 mls/hr .[id number] MATTHEW Administration Levothyroxine Sodium 50 mcg 02/24/25 06:30 02/24/25 05:14 Levothyroxine Sodium 50 Mcg Tablet PO 03/26/25 06:29 50 mcg DAILYBB MATTHEW Administration Magnesium Oxide 400 mg 02/24/25 09:00 02/24/25 08:09 Magnesium Oxide 400 Mg Tab PO 03/26/25 08:59 400 mg DAILY MATTHEW Administration Metoprolol Succinate 12.5 mg 02/24/25 09:00 02/24/25 08:09 Metoprolol Succ 25mg Ext Rel Tab PO 03/26/25 08:59 12.5 mg DAILY MATTHEW Administration Morphine Sulfate 2 mg 02/23/25 14:44 02/24/25 08:15 Morphine Sulfate 2 Mg/Ml Carp IV 03/09/25 14:43 2 mg Q3H PRN Administration Pain (6,7,8,9,10) Ondansetron HCl 4 mg 02/23/25 13:08 02/24/25 08:15 Ondansetron Inj 2 Mg/Ml 2 Ml Vial IV 03/25/25 13:07 4 mg Q6H PRN Administration Nausea And Vomiting Sacubitril/Valsartan 1 tab 02/23/25 21:00 02/24/25 08:09 Valsartan/Sacubitril 51/49 Mg Tab PO 03/25/25 20:59 1 tab BID MATTHEW Administration Thiamine HCl 100 mg 02/24/25 09:00 02/24/25 08:09 Thiamine Hcl 100 Mg Tab PO 03/26/25 08:59 100 mg QAM MATTHEW Administration NPO Date Last Intake of Fluids: 02/24/25 Time Last Intake of Fluids: 08:00 Date Last Intake of Solids: 02/23/25 Time Last Intake of Solids: 02:00 Past Medical History Medical History Diabetes mellitus Idiopathic polyneuropathy Ulnar neuropathy at elbow of left upper extremity Muscle weakness (generalized) Arthritis Exercise / Class Metabolic Activity II 4-5 Yardwork/Stairs/Walk up hill Past Family History Family History Father Myocardial infarction Sister Lung cancer Past Surgical History Surgical History History of hysterectomy Hx of appendectomy Hx of tonsillectomy Past Anesthesia History No Hx of Anesthesia Complications and No Family Hx of Anesthesia Complications History of PONV No Hx of PONV and No Hx of Motion Sickness Social History Smoking Status: Current every day smoker Smoking cigarettes per day: 15 Hx Alcohol Use: Yes Alcohol type: wine alcohol intake frequency: 0-2 drinks per day Hx Substance Use: No Review of Systems denies fever/cough/ colds/ chest pain/ SOB/ GABRIELE denies GABRIELE Physical Exam Vital Signs Last Vital Signs Temp 36.8 C 02/24/25 12:00 Pulse 74 02/24/25 12:15 Resp 18 02/24/25 12:15 BP 148/71 H 02/24/25 10:00 Pulse Ox 93 02/24/25 12:15 O2 Del Method Room Air 02/24/25 07:00 O2 Flow Rate 2 02/24/25 02:55 ENMT Mouth: no TMJ abnormality and no dentition abnormality Thyromental Distance: > or= 3.5 Finger Breadths Mallampati Class: II Neck neck extension not limited Respiratory normal respiratory effort; no respiratory distress Auscultation: lungs clear to auscultation bilaterally Cardiovascular Rate/Rhythm: regular rate and regular rhythm Neurologic moves all extremities Psychiatric Orientation: alert and oriented x 3 Testing Laboratory Results 02/24/25 05:02 02/24/25 05:02 PT 10.3 Seconds (9.0-12.0) 02/23/25 15:17 INR 0.9 (0.9-1.1) 02/23/25 15:17 Blood Type O Positive 02/23/25 15:18 Antibody Screen NEGATIVE 02/23/25 15:18
[2025-02-24] MEDS ORDERED: ALBUMIN HUMAN 5% 12.5 GM/250 ML VIAL IV ONE (13:01)
--- NOTE | 2025-02-24 13:28 | History & Physical Bridge Note ---
Date of Service February 24, 2025 History & Physical Bridge Note I have examined the patient, reviewed the History & Physical and in the interval since the performance of the History & Physical I have noted the following changes of clinical significance: no changes noted
--- NOTE | 2025-02-24 14:16 | Communication Note ---
Date of Service: February 24, 2025 EGD note Patient has distal esophageal ulcers. This is above a small hiatal hernia. This certainly could account for heartburn indigestion and coffee-ground emesis. She had 3 nonbleeding AVMs of the stomach. No intervention undertaken. There is also erythematous gastritis and nodular erythematous duodenitis with some superficial duodenal ulcerations. Biopsies were done in the antrum for H. pylori. No visible vessels identified. Patient should be on a PPI. If H. pylori is present we could consider eradication. Patient to potential have some oozing with anticoagulation such as Plavix Xarelto Eliquis Coumadin or heparin. Unlikely to have significant bleeding with the use of aspirin. If anticoagulation is required or desired can proceed. IV PPI therapy twice daily till taking p.o. then 40 mg of Protonix daily.
--- NOTE | 2025-02-24 14:24 | GI REPORT ---
[facility] Patient: JEREMIAH RAMIREZ : 1945 Sex at : Female Age: 79 Years Procedure: Upper GI endoscopy Date: 02/24/2025 Attending Physician: Giovanny Castillo MD Referring MD: Haris Mcclain Indications: - Suspected upper gastrointestinal bleeding Medications: - General Anesthesia Complications: - No immediate complications. Estimated Blood Loss: - Estimated blood loss was minimal. Procedure: - The egd scope was introduced through the mouth and advanced to the second part of the duodenum. - The upper GI endoscopy was accomplished without difficulty. - The patient tolerated the procedure well. Findings: - A small hiatal hernia was present. - LA Grade C (one or more mucosal breaks continuous between tops of 2 or more mucosal folds, less than 75% circumference) esophagitis with no bleeding was found in the lower third of the esophagus. - Three small angioectasias with no bleeding were found in the gastric body. - Diffuse moderate inflammation characterized by erythema was found in the gastric antrum. Biopsies were taken with a cold forceps for Helicobacter pylori testing. - Diffuse nodular erythematous mucosa was found in the duodenal bulb. Impression: - Small hiatal hernia. - LA Grade C reflux esophagitis with no bleeding. - Three non-bleeding angioectasias in the stomach. - Gastritis, characterized by erythema. Biopsied. - Nodular erythema mucosa in the duodenal bulb. Recommendation: - Okay to proceed with anticoagulation if needed. PPI long-term for distal esophageal ulcerations. Treat H. pylori if present. Procedure Code(s): - 78037, Esophagogastroduodenoscopy, flexible, transoral; with biopsy, single or multiple Diagnosis Code(s): - K44.9, Diaphragmatic hernia without obstruction or gangrene - K21.00, Gastro-esophageal reflux disease with esophagitis, without bleeding - K31.819, Angiodysplasia of stomach and duodenum without bleeding - K29.70, Gastritis, unspecified, without bleeding - K31.89, Other diseases of stomach and duodenum CPT(R) - 2023 copyright [employer]. All Rights Reserved. The CPT codes, CCI edits and ICD codes generated are intended as suggestions and were generated based on input data. These codes are preliminary and upon hand gluer and slicer review may be revised to meet current compliance and payer requirements. The provider is responsible for the final determination of appropriate codes, and modifiers. Giovanny Castillo MD This document has been electronically signed. Note Initiated:02/24/2025 Note Completed:02/24/2025 2:23 PM \\[email or web address]\Results\[email or web address]\[id number].[email or web address]
[2025-02-24] MEDS: TRANEXAMIC ACID / 0.7% NACL 1,000 MG/100 ML BAG IV ONE (14:30)
--- NOTE | 2025-02-24 14:48 | Hospitalist Progress Note ---
Date of Service February 24, 2025 Assessment & Plan (1) Fall from standing: (2) Displaced fracture of right femoral neck: (3) Esophageal ulcer without bleeding: (4) Hiatal hernia with gastroesophageal reflux disease and esophagitis: (5) Gastritis: (6) Gastric AVM: (7) Duodenal ulcer disease: (8) Alcohol dependence: (9) Chronic heart failure with reduced ejection fraction (HFrEF, <= 40%): (10) Acute blood loss anemia: (11) Hypertension: (12) Hypothyroidism: Plan Patient 79-year-old female transferred to [facility] after patient sustained a fall from standing in the right femur fracture. Patient also noted to be anemic. And also concern for possible alcohol withdrawal. Patient has not had any symptoms of alcohol withdrawal has not required any medical intervention, continue manage monitor GI consultation noted, underwent EGD, findings as noted above. No active bleeding. Continue PPI twice daily Orthopedic evaluation noted, anticipating repair for fracture today Continue to monitor hemoglobin, suspect most recent blood loss is due to the fracture, will continue to monitor transfuse as needed Patient with reduced ejection fraction chronically. No evidence of acute decompensation. Continue to monitor with stress of surgery and blood loss. Continue other outpatient medications Therapies Case management anticipate patient will need rehab in the setting of hip fracture prior to returning home. Admission and Anticipated Discharge Date Admission Date: February 23, 2025 Subjective Patient denies any symptoms of alcohol withdrawal. No tremor, no shakes. Nursing has not reported any significant alcohol withdrawal symptoms. Pain is fairly well-controlled. No chest pain or shortness of breath. Physical Exam Physical Exam: Constitutional: Alert, nontoxic HEENT: Mucous membranes moist. Lungs: Clear to auscultation, decreased, no wheezes rales or rhonchi CV: S1-S2, regular Abdomen: Soft, nontender, nondistended Extremities: No significant edema Musculoskeletal: Right lower extremity shortened and externally rotated Neuro: No focal deficits, generally weak Psych: Cooperative, normal mood Results & Data Results & Data Vital Signs (Past 12 Hours) Vital Signs Temp Pulse Resp BP Pulse Ox O2 Del Method O2 Del Method 02/24/25 13:12 70 22 02/24/25 12:15 74 18 93 02/24/25 12:00 36.8 C 02/24/25 11:09 64 16 90 02/24/25 10:00 66 19 98 02/24/25 10:00 148/71 H 02/24/25 09:00 66 17 92 02/24/25 08:00 126/52 L 02/24/25 08:00 126/52 L 02/24/25 08:00 64 17 93 02/24/25 08:00 36.7 C 02/24/25 07:04 71 02/24/25 07:00 116/68 02/24/25 07:00 60 17 93 Room Air 02/24/25 05:00 Room Air 02/24/25 02:55 36.7 C 78 17 129/74 98 O2 Flow Rate 02/24/25 13:12 02/24/25 12:15 02/24/25 12:00 02/24/25 11:09 02/24/25 10:00 02/24/25 10:00 02/24/25 09:00 02/24/25 08:00 02/24/25 08:00 02/24/25 08:00 02/24/25 08:00 02/24/25 07:04 02/24/25 07:00 02/24/25 07:00 02/24/25 05:00 02/24/25 02:55 2 Diagnostic Findings Reviewed imaging, laboratory and diagnostic studies. Pertinent findings as below. Hemoglobin 8.7, decreasing Electrolytes stable Creatinine 1.19 EGD report noted, esophageal ulcerations, gastritis
[2025-02-24] MEDS ORDERED: CALCIUM CHLORIDE 10% 10 ML SYR IV ONE (15:20)
[2025-02-24] MEDS: TRANEXAMIC ACID / 0.7% NACL 1000MG/100ML BAG IV ONE (15:26)
[2025-02-24] MEDS: BUPIVACAINE/EPINEPHRINE 0.5% MPF 1:200,000 30 ML VIAL ONE (15:27)
[2025-02-24] MEDS ORDERED: SUGAMMADEX SODIUM 200 MG/2 ML VIAL IV ONE (15:43)
--- NOTE | 2025-02-24 15:58 | Operative Report ---
PG Post Operative Report Pre & Post Diagnosis Operation Date: 02/24/25 16:30 Pre-Op diagnosis: Right displaced femoral neck fracture. Postoperative diagnosis: Right displaced femoral neck fracture I identified the patient and participated in the time-out.: Yes Procedure Operation Date: 02/24/25 16:30 Right cemented bipolar hip arthroplasty Surgeon Edy Verdugo MD Foot Drill Operator Jet Ospina PA-C Estimated Blood Loss 100 Findings Consistent with Post-Op Diagnosis Specimens Right femoral head sent for pathology. Anesthesia Type General Complications none Disposition Accompanied Patient To Recovery: No Description of Procedure Operative implants consist of: 1. Benjamin Biomet size 7 echo cemented standard offset femoral stem. 2. 9 distal centralizer. 3. +3+/28 mm femoral head. 4. 48 mm bipolar shell. 5. Small cement restrictor. The patient was taken to the op room, identified, and placed on the operating table in the supine position. All conductors were appropriately padded. A general anesthetic was employed by anesthesia team. A preoperative EGD was performed by the GI service. I refer to their dictation for this part of the procedure. Once the EGD was done the patient was then placed in the left lateral decubitus position. An axillary roll was placed. Sterile stool Birkett position was used for positioning. The patient did receive 1 g Ancef and 1 g of TXA. The right leg was then scrubbed with Hibiclens, prepped with ChloraPrep and draped in usual sterile fashion. A posterolateral approach to the right hip was then performed through a curvilinear incision centered over the greater trochanter. Sharp dissection was Through subcutaneous tissue down to the IT band gluteal fascia. The IT band gluteal fascia was lysed longitudinally in line with skin incision. The greater troches bursa was excised. The piriformis and external rotators along with the posterior hip joint capsule were released from the posterior aspect of the hip. I then made IT in the capsule to allow for later repair and each leaflet was tagged. The hip was internally rotated. A femoral neck osteotomy cut was made about a centimeter above the lesser trochanter. The remaining femoral neck was removed. The femoral head was removed. The femoral head was sized to a size 48. The hip was trialed in a 48 trial fit appropriately. The proximal femur was then with a cookie cutter followed by canal finder and lateralizing reamer. I then broached begin with size 7 got up to 9. Excellent fit and 9. We trialed the hip and the +3 articular ball provided appropriate soft tissue tension, leg lengths and was fully stable. We elected place these implants. All trial implants were removed. A small cement restrictor was placed. A double batch [place]os G cement was mixed and then injected the canal. A Benjamin/Biomet size 7 echo cemented stem was then placed. A +3/28 mm articular ball and a 48 mm bipolar shell and liner were placed. Hip was located once again found to be stable. Attention jointer closing. The wound was irrigated coconuts with pulsatile lavage solution. I did inject locally with 60 cc of half percent Marcaine with epinephrine. The posterior capsule was then repaired with #2 Tycron suture. The IT band gluteal fascia was then repaired with #1 PDS suture in running fashion. Subcutaneous tissue was then closed with 2 layers of deep layer #1 Vicryl suture in the subcutaneous tissues with 2-0 Dexon suture in a buried interrupted fashion. Skin was closed with skin krystal. Leg was then cleaned and dried and a sterile dressing with Xeroform, 4 fours, sterile ABD pad and foam tape was applied. Patient then transferred to the recovery in stable condition. She was brought out of general esthesia. The patient tolerated the procedure well and there are no complications. Jet Ospina, my physician evaluation assistant, along with Omar Jaramillo PA-C, were present in essential for this procedure. They were required in order to prep and drape, operative exposure, retraction, perform the technical details of the operation, placement of the implant, and closure of the incision site. I attest to the content of the Intraoperative Record and any orders documented therein. Any exceptions are noted below.
--- NOTE | 2025-02-24 16:30 | Anesthesiology Progress Note ---
Date of Service February 24, 2025 Anesthesia Post Procedure Vital Signs Vital Signs: Temp Pulse Pulse Resp BP BP Pulse Ox 02/24/25 16:30 77 18 154/57 H 98 02/24/25 16:20 79 18 153/62 H 100 02/24/25 16:10 71 12 149/66 H 100 02/24/25 16:00 36.2 C L 83 24 140/96 100 02/24/25 13:12 70 22 02/24/25 12:15 74 18 93 02/24/25 12:00 36.8 C 02/24/25 11:09 64 16 90 02/24/25 10:00 66 19 98 02/24/25 10:00 148/71 H 02/24/25 09:00 66 17 92 02/24/25 08:00 126/52 L 02/24/25 08:00 126/52 L 02/24/25 08:00 64 17 93 02/24/25 08:00 36.7 C 02/24/25 07:04 71 02/24/25 07:00 116/68 02/24/25 07:00 60 17 93 02/24/25 05:00 02/24/25 02:55 36.7 C 78 17 129/74 98 02/24/25 02:31 68 02/24/25 01:55 36.7 C 70 18 130/57 L 99 02/24/25 01:25 36.7 C 70 20 132/67 98 02/24/25 01:10 36.7 C 71 21 109/75 99 02/24/25 01:00 02/24/25 00:51 36.7 C 70 15 133/60 97 02/23/25 23:57 36.7 C 67 17 124/76 97 02/23/25 21:00 02/23/25 19:47 36.8 C 70 17 132/55 L 90 02/23/25 18:06 66 17 92 02/23/25 18:00 132/49 L 02/23/25 17:59 65 16 128/82 97 02/23/25 17:48 68 15 94 02/23/25 17:00 82 19 96 02/23/25 17:00 136/70 O2 Del Method O2 Del Method O2 Flow Rate O2 Flow Rate 02/24/25 16:30 Oxymask 2 02/24/25 16:20 Oxymask 4 02/24/25 16:10 Oxymask 4 02/24/25 16:00 Oxymask 6 02/24/25 13:12 02/24/25 12:15 02/24/25 12:00 02/24/25 11:09 02/24/25 10:00 02/24/25 10:00 02/24/25 09:00 02/24/25 08:00 02/24/25 08:00 02/24/25 08:00 02/24/25 08:00 02/24/25 07:04 02/24/25 07:00 02/24/25 07:00 Room Air 02/24/25 05:00 Room Air 02/24/25 02:55 2 02/24/25 02:31 02/24/25 01:55 2 02/24/25 01:25 2 02/24/25 01:10 2 02/24/25 01:00 Nasal Cannula 2 02/24/25 00:51 2 02/23/25 23:57 Nasal Cannula 2 02/23/25 21:00 Room Air 02/23/25 19:47 Room Air 02/23/25 18:06 02/23/25 18:00 02/23/25 17:59 02/23/25 17:48 02/23/25 17:00 02/23/25 17:00 Pain Intensity Right Hip: Pain Intensity: 6 Transfer of Care Handoff Completed per policy Notes Mental Status: alert / awake / arousable and participated in evaluation Patient Amnestic to Procedure: Yes Nausea / Vomiting: adequately controlled Pain: adequately controlled Airway Patency, RR, SpO2: stable & adequate BP & HR: stable & adequate Hydration State: stable & adequate Anesthetic Complications: no major complications apparent and Pt Satisfied with anesthetic care
--- NOTE | 2025-02-24 17:18 | XRay Report ---
Study: Right hip 2 views History: Postop Comparison: 02/23/2025 Findings/impression: There is no acute fracture or dislocation. Right hip arthroplasty has been placed. This appears well-seated without complication. Postoperative fluid and air. Prominent vascular calcifications. Electronically signed by Fabrice Jaramillo 02-24-2025 5:17 PM
[2025-02-24] MEDS: ASPIRIN 81 MG ECTAB PO SCH (21:27)
[2025-02-25] MEDS: ACETAMINOPHEN 1,000 MG/100 ML VIAL IV PRN (07:43)
[2025-02-25 08:36] LABS: Hematocrit (blood only) 26.9 % (37.0-47.0); Hemoglobin 8.7 g/dl (12.0-16.0); Immature Granulocytes # (auto) 0.04 K/uL (0.01-0.20); Immature Granulocytes % (auto) 0.5 %; Mean Corpuscular Hemoglobin 30.6 pg (25.0-34.0); Mean Corpuscular Volume 94.7 fL (80.0-100.0); Platelet Count 201 K/uL (130-400); RDW Standard Deviation 61.6 fL (36.4-46.3); Red Blood Count 2.84 M/uL (4.20-5.40); White Blood Count 8.21 K/ul (4.8-10.8)
[2025-02-25] MEDS: POLYETHYLENE (MIRALAX) 17 GM PACK PO SCH (08:53)
[2025-02-25 09:01] LABS: Anion Gap 6.0 (3-11); Blood Urea Nitrogen 18.0 mg/dl (6-23); Calcium 7.9 mg/dl (8.6-10.3); Carbon Dioxide 19.0 mmol/L (21-32); Chloride 112.0 mmol/L (98-107); Creatinine Clr Calc Pharmacy 34.4 ml/min; Glucose 78.0 mg/dl (70-99(Fasting)); Potassium 4.4 mmol/L (3.5-5.1); Sodium 137.0 mmol/L (136-145)
--- NOTE | 2025-02-25 09:35 | Gastroenterology Progress Note ---
Date of Service February 25, 2025 Assessment & Plan (1) Acute blood loss anemia: Plan 79 year old female with history of anxiety, depression, hypothyroidism, HTN, HFrEF, CAD, hyperlipidemia, asymptomatic carotid artery stenosis, peripheral vascular disease, recurrent cellulitis admitted for management of a right hip fracture - GI was asked to evaluate for GI bleed. EGD w/ esophageal ulceration, AVMs, gastritis, duodenitis w/ ulcerations 1. Coffee ground emesis/hematemesis w/ anemia requiring transfusion S/P EGD w/ esophageal ulceration, AVMs, gastritis, duodenitis w/ ulcerations Follow Bx Treat HPylori if present If anticoagulation is required or desired can proceed IV PPI therapy twice daily till taking p.o. then 40 mg of Protonix daily Recall GI as needed. I spent a total of 40 minutes on the date of service in review of patient's record, and previously obtained information in person and appropriate medical visit, discussion and education of plan, with patient and/or caregiver, placing orders for tests/referral/procedures as medically necessary and documentation of pertinent clinical information in patient's medical records for their visit today. Admission and Anticipated Discharge Date Admission Date: February 23, 2025 Supervising Physician Co-Signing Physician Notes Patient examined at bedside feeling better postsurgery. No hematemesis no melena medic easier. Hemoglobin 8.7 continue to follow. Biopsies for H. pylori pending patient had gastritis and duodenitis. There are also gastric AVMs not treated. Patient has erosive esophagitis continue her long-term PPI therapy Subjective Pt was seen and evaluated, chart reviewed. Feeling well. Denies abd pain. No nausea/vomiting. No BMs. HGB stable at 8.7. S/P 2 units RBCs. EGD 2024: Small hiatal hernia. LA Grade C reflux esophagitis with no bleeding. Three non-bleeding angioectasias in the stomach. Gastritis, characterized by erythema. Biopsied. Nodular erythema mucosa in the duodenal bulb. Review of Systems Review of Systems: All other findings negative except as noted in HPI. Physical Exam Constitutional: WD/WN, vitals as above Respiratory: normal respiratory effort, lungs clear to auscultation Cardiovascular: RRR, no murmur, no edema Gastrointestinal (Abdomen): normal bowel sounds, soft, nontender, no hepatosplenomegaly Skin: no rashes, warm and dry Results & Data Results & Data Vital Signs (Past 12 Hours) Vital Signs Temp Pulse Pulse Resp BP Pulse Ox Pulse Ox 02/25/25 07:10 98.4 F 68 18 119/67 95 02/25/25 07:00 66 02/25/25 03:32 97.9 F 65 16 114/52 L 94 02/25/25 01:00 98.1 F 70 16 133/68 94 02/25/25 00:00 96 02/24/25 21:58 72 O2 Del Method O2 Del Method 02/25/25 07:10 Room Air 02/25/25 07:00 02/25/25 03:32 Room Air 02/25/25 01:00 Room Air 02/25/25 00:00 Room Air 02/24/25 21:58 Laboratory Results 02/25/25 02/25/25 02/24/25 Range/Units 07:56 06:49 20:15 WBC 8.21 (4.8-10.8) K/ul RBC 2.84 L (4.20-5.40) M/uL Hgb 8.7 L (12.0-16.0) g/dl Hct 26.9 L (37.0-47.0) % MCV 94.7 (80.0-100.0) fL MCH 30.6 (25.0-34.0) pg MCHC 32.3 (32.0-36.0) g/dL RDW Std Deviation 61.6 H (36.4-46.3) fL RDW Coeff of Magdy 17.6 H (11.5-14.5) % Plt Count 201 (130-400) K/uL MPV 10.9 (9.4-12.4) fL Immature Gran % (Auto) 0.5 % Neut % (Auto) 81.8 % Lymph % (Auto) 6.7 % [place] % (Auto) 10.8 % Eos % (Auto) 0.0 % Baso % (Auto) 0.2 % Neut # (Auto) 6.71 H (1.40-6.50) K/uL Lymph # (Auto) 0.55 L (1.20-3.40) K/uL [place] # (Auto) 0.89 H (0.11-0.59) K/uL Eos # (Auto) 0.00 (0.00-0.50) K/uL Baso # (Auto) 0.02 (0.00-0.20) K/uL Immature Gran # (Auto) 0.04 (0.01-0.20) K/uL Sodium 137 (136-145) mmol/L Potassium 4.4 (3.5-5.1) mmol/L Chloride 112 H (98-107) mmol/L Carbon Dioxide 19 L (21-32) mmol/L Anion Gap 6 (3-11) BUN 18 (6-23) mg/dl Creatinine 1.06 (0.6-1.2) mg/dl Est Cr Clr Drug Dosing 34.4 ml/min eGFR 52.78 BUN/Creatinine Ratio 17.0 (10-20) Glucose 78 (70-99(Fasting)) mg/dl POC Glucose 77 130 H (70-99) mg/dl Calcium 7.9 L (8.6-10.3) mg/dl Prealbumin Pending 25-OH Vitamin D Total 46.7 (30-100) ng/ml Blood Type Antibody Screen Crossmatch 02/24/25 02/23/25 Range/Units 16:04 15:18 WBC (4.8-10.8) K/ul RBC (4.20-5.40) M/uL Hgb (12.0-16.0) g/dl Hct (37.0-47.0) % MCV (80.0-100.0) fL MCH (25.0-34.0) pg MCHC (32.0-36.0) g/dL RDW Std Deviation (36.4-46.3) fL RDW Coeff of Magdy (11.5-14.5) % Plt Count (130-400) K/uL MPV (9.4-12.4) fL Immature Gran % (Auto) % Neut % (Auto) % Lymph % (Auto) % [place] % (Auto) % Eos % (Auto) % Baso % (Auto) % Neut # (Auto) (1.40-6.50) K/uL Lymph # (Auto) (1.20-3.40) K/uL [place] # (Auto) (0.11-0.59) K/uL Eos # (Auto) (0.00-0.50) K/uL Baso # (Auto) (0.00-0.20) K/uL Immature Gran # (Auto) (0.01-0.20) K/uL Sodium (136-145) mmol/L Potassium (3.5-5.1) mmol/L Chloride (98-107) mmol/L Carbon Dioxide (21-32) mmol/L Anion Gap (3-11) BUN (6-23) mg/dl Creatinine (0.6-1.2) mg/dl Est Cr Clr Drug Dosing ml/min eGFR BUN/Creatinine Ratio (10-20) Glucose (70-99(Fasting)) mg/dl POC Glucose 161 H (70-99) mg/dl Calcium (8.6-10.3) mg/dl Prealbumin 25-OH Vitamin D Total (30-100) ng/ml Blood Type O Positive Antibody Screen NEGATIVE Crossmatch See Detail PG Care Time/CCT Total # of Minutes Spent Total Time Spent with Patient: Total time spent is greater than 50% in coordination of care (as documented) at patient's floor/unit and/or counseling patient: Coding Level of Care Code 30686 SUB INP/OBS CARE 2/35MIN Diagnoses Acute blood loss anemia D62
[2025-02-25 09:59] LABS: Prealbumin 18.1 mg/dl (20-40)
--- NOTE | 2025-02-25 10:58 | Orthopedic Progress Note ---
Date of Service February 25, 2025 Assessment & Plan (1) Status post hemiarthroplasty of right hip: (2) Displaced fracture of right femoral neck: Plan 79-year-old female POD# 1 s/p right hip bipolar hemiarthroplasty due to femoral neck fracture. Orthopedically, doing well. Pain is well-controlled. Plan: 1. DVT prophylaxis w/ SILVIO hose, SCDs, ASA 81 mg BID. 2. PT/OT as tolerated. WBAT on RLE w/ assistive device as needed. 3. Pain well-controlled continue current regimen. 4. Medical management as per the primary medicine service. 5. Dressing change on POD #2. 6. Disposition - orthopedically okay for discharge once she is medically stable. Per case management, plan is for [facility] pending auth. 7. Follow-up with Dr. Verdugo's team 2 to 3 weeks postop. Subjective Patient is POD# 1 s/p right hip bipolar hemiarthroplasty for displaced femoral neck fracture by Dr. Verdugo on 02/24/2025. Patient says her pain is well- controlled this morning. Denies CP, SOB, N/V, RLE paresthesia. Case management is working on getting the patient to [facility]. Review of Systems All systems reviewed & are unremarkable except as noted in HPI & below. Physical Exam GENERAL: AA&Ox3, NAD. Pleasant, affect is calm. Sitting in bedside chair and appears comfortable. RESPIRATORY: Normal respiratory effort with no signs of distress. CHEST/AXILLA: Chest movement symmetrical. No deformities noted. CARDIOVASCULAR: No edema noted. SKIN: [place], warm and dry. MS/EXTREMITY: Hip dressing c/d/i. SILVIO hose donned. Thigh is soft, supple. Leg lengths are equal. + ankle dorsi/plantarflexion. NVI distally. Calf soft/NT. PT/DP pulses intact, 2+. Results & Data Results & Data Laboratory Results Laboratory Results - last 24 hr 02/23/25 02/24/25 02/24/25 15:18 16:04 20:15 WBC RBC Hgb Hct MCV MCH MCHC RDW Std Deviation RDW Coeff of Magdy Plt Count MPV Immature Gran % (Auto) Neut % (Auto) Lymph % (Auto) [place] % (Auto) Eos % (Auto) Baso % (Auto) Neut # (Auto) Lymph # (Auto) [place] # (Auto) Eos # (Auto) Baso # (Auto) Immature Gran # (Auto) Sodium Potassium Chloride Carbon Dioxide Anion Gap BUN Creatinine Est Cr Clr Drug Dosing eGFR BUN/Creatinine Ratio Glucose POC Glucose 161 H 130 H Calcium Prealbumin 25-OH Vitamin D Total Blood Type O Positive Antibody Screen NEGATIVE Crossmatch See Detail 02/25/25 02/25/25 06:49 07:56 WBC 8.21 RBC 2.84 L Hgb 8.7 L Hct 26.9 L MCV 94.7 MCH 30.6 MCHC 32.3 RDW Std Deviation 61.6 H RDW Coeff of Magdy 17.6 H Plt Count 201 MPV 10.9 Immature Gran % (Auto) 0.5 Neut % (Auto) 81.8 Lymph % (Auto) 6.7 [place] % (Auto) 10.8 Eos % (Auto) 0.0 Baso % (Auto) 0.2 Neut # (Auto) 6.71 H Lymph # (Auto) 0.55 L [place] # (Auto) 0.89 H Eos # (Auto) 0.00 Baso # (Auto) 0.02 Immature Gran # (Auto) 0.04 Sodium 137 Potassium 4.4 Chloride 112 H Carbon Dioxide 19 L Anion Gap 6 BUN 18 Creatinine 1.06 Est Cr Clr Drug Dosing 34.4 eGFR 52.78 BUN/Creatinine Ratio 17.0 Glucose 78 POC Glucose 77 Calcium 7.9 L Prealbumin 18.1 L 25-OH Vitamin D Total 46.7 Blood Type Antibody Screen Crossmatch Diagnostic Findings Hip X-Ray 02/24/25 16:21 Study: Right hip 2 views History: Postop Comparison: 02/23/2025 Findings/impression: There is no acute fracture or dislocation. Right hip arthroplasty has been placed. This appears well-seated without complication. Postoperative fluid and air. Prominent vascular calcifications. Electronically signed by Fabrice Jaramillo 02-24-2025 5:17 PM PG Care Time/CCT Total # of Minutes Spent Total Time Spent with Patient: Total time spent is greater than 50% in coordination of care (as documented) at patient's floor/unit and/or counseling patient: Coding [place] [address] Post Operative Follow-Up Patient Type Established History Problem Focused Exam Problem Focused Medical Decision Making Straight Forward Diagnoses Status post hemiarthroplasty of right hip Z96.641 Displaced fracture of right femoral neck S72.001A
--- NOTE | 2025-02-25 14:33 | Hospitalist Progress Note ---
Date of Service February 25, 2025 Assessment & Plan (1) Fall from standing: (2) Displaced fracture of right femoral neck: (3) Esophageal ulcer without bleeding: (4) Hiatal hernia with gastroesophageal reflux disease and esophagitis: (5) Gastritis: (6) Gastric AVM: (7) Duodenal ulcer disease: (8) Alcohol dependence: (9) Chronic heart failure with reduced ejection fraction (HFrEF, <= 40%): (10) Acute blood loss anemia: (11) Hypertension: (12) Hypothyroidism: Plan Patient status post right hip fracture repair. Overall doing well. Increase activities, therapies Continue PPI for EGD findings Continue to monitor hemoglobin No evidence of alcohol withdrawal symptoms Admission and Anticipated Discharge Date Admission Date: February 23, 2025 Subjective Patient sitting up in chair. She states she is doing well. Pain is controlled. Physical Exam Physical Exam: Constitutional: Alert HEENT: Mucous membranes moist. Lungs: Clear to auscultation, decreased, no wheezes rales or rhonchi CV: S1-S2, regular Abdomen: Soft, nontender, nondistended Extremities: No significant edema, surgical dressing dry right hip Neuro: No focal deficits Psych: Cooperative, normal mood Results & Data Results & Data Vital Signs (Past 12 Hours) Vital Signs Temp Pulse Pulse Resp BP Pulse Ox O2 Del Method 02/25/25 14:29 36.6 C 69 18 117/58 L 97 Room Air 02/25/25 11:10 36.8 C 65 18 101/57 L 96 Room Air 02/25/25 07:10 36.9 C 68 18 119/67 95 Room Air 02/25/25 07:00 66 02/25/25 03:32 36.6 C 65 16 114/52 L 94 Room Air Diagnostic Findings Reviewed imaging, laboratory and diagnostic studies. Pertinent findings as below. Hemoglobin 8.7, stable Electrolytes stable Creatinine 1.06
[2025-02-25] MEDS: ACETAMINOPHEN 500 MG TAB PO SCH (20:17)
[2025-02-26 06:41] LABS: Hematocrit (blood only) 27.8 % (37.0-47.0); Hemoglobin 8.8 g/dl (12.0-16.0); Mean Corpuscular Hemoglobin 30.1 pg (25.0-34.0); Mean Corpuscular Volume 95.2 fL (80.0-100.0); Platelet Count 189 K/uL (130-400); RDW Standard Deviation 58.6 fL (36.4-46.3); Red Blood Count 2.92 M/uL (4.20-5.40); White Blood Count 6.63 K/ul (4.8-10.8)
[2025-02-26 07:08] LABS: Anion Gap 4.0 (3-11); Blood Urea Nitrogen 19.0 mg/dl (6-23); Calcium 7.8 mg/dl (8.6-10.3); Carbon Dioxide 21.0 mmol/L (21-32); Chloride 108.0 mmol/L (98-107); Creatinine Clr Calc Pharmacy 29.2 ml/min; Glucose 94.0 mg/dl (70-99(Fasting)); Potassium 4.2 mmol/L (3.5-5.1); Sodium 133.0 mmol/L (136-145)
--- NOTE | 2025-02-26 07:42 | Orthopedic Progress Note ---
Date of Service February 26, 2025 Assessment & Plan (1) Status post hemiarthroplasty of right hip: Plan: 79-year-old female postop day 2 from right cemented bipolar hip arthroplasty for fracture. Orthopedically she is doing well. Her pain appears controlled. Hips located. She is neurologically intact. Plan: 1. DVT prophylaxis including thigh-high teds, SCDs, aspirin twice a day for 6 weeks. 2. PT/OT. Weight-bear as tolerated. Right total hip protocol. 3. Pain control. Doing okay with current pain regimen. I try and limit narcotic use to avoid confusion. 4. Medical management as per the medicine service. 5. Disposition. She is orthopedically okay for discharge anytime medically stable. I need to see her back 2 to 3 weeks out from surgery date. Any orthopedic questions can be directed me [phone]. (2) Acute blood loss anemia: Admission and Anticipated Discharge Date Admission Date: February 23, 2025 Subjective 79-year-old female postop day 2 from a right cemented bipolar hip arthroplasty for fracture. He seems to be doing well. Had to wake her this morning. Reports no particular pain. Physical Exam Physical Exam: Physical nation is a pleasant elderly female. Had awakened this morning. Examination of the right hip reveals the leg lengths are equal. Dressings clean dry and intact. Thigh is soft and supple. She is neurologically intact. Results & Data Vital Signs (Past 12 Hours) Vital Signs Temp Pulse Resp BP Pulse Ox O2 Del Method O2 Del Method 02/25/25 23:42 Room Air 02/25/25 22:20 36.5 C 70 16 103/61 98 Room Air 02/25/25 21:20 Room Air Laboratory Results Hemoglobin is 8.8. Hematocrit was 27.8. Creatinine just slightly elevated about 1.25.
[2025-02-26 08:07] VITALS: RESP 17; TEMP 97.3; O2SAT 96
--- NOTE | 2025-02-26 11:03 | Discharge Summary ---
Discharge Summary Date of Service February 26, 2025 Principal Dx & Hospital Course #1 = Principal Diagnosis (1) Fall from standing: (2) Displaced fracture of right femoral neck: (3) Status post hemiarthroplasty of right hip: (4) Esophageal ulcer without bleeding: (5) Hiatal hernia with gastroesophageal reflux disease and esophagitis: (6) Gastritis: (7) Gastric AVM: (8) Duodenal ulcer disease: (9) Alcohol dependence: (10) Chronic heart failure with reduced ejection fraction (HFrEF, <= 40%): (11) Acute blood loss anemia: (12) Hypertension: (13) Hypothyroidism: Plan Patient 79-year-old female presented to [facility] emergency department after sustaining a fall in her home after putting away some laundry. Diagnosed with a hip fracture and was transferred to [facility] for orthopedic surgical intervention. Patient was initially admitted to a monitored unit with a questionable history of alcohol misuse as well as some significant anemia. Patient received 1 unit of packed red blood cell transfusion. Orthopedic and gastroenterology consultations were obtained. GI consultation obtained due to her anemia. She underwent EGD which showed extensive esophageal ulcers, gastritis and some duodenal ulcers. She was treated with PPI. Patient underwent hemiarthroplasty of the right hip. Her postoperative course was uneventful. Patient's hemoglobin remained stable posttransfusion. There was no evidence of alcohol withdrawal and the patient did not require any treatment for this. She was evaluated by therapies. She is deemed a good candidate for acute rehab. On the day of discharge her vital signs are stable. She will transition to Xarelto for VTE prophylaxis to avoid NSAIDs in the setting of her gastritis. She will follow-up with orthopedics in approximately 2 weeks as coordinated through their office. And she will continue receive her rehabilitation [facility]. Notes For Next Care Provider Follow-up with orthopedics as coordinated through their office Continue with therapies Diuretics on hold, may need to be resumed at some point Medication Changes From Visit Tylenol scheduled for pain Oxycodone as needed for as needed pain Xarelto for VTE prophylaxis Diuretics on hold at this time, may need to be resumed at some point Admission HPI Per Admitting Provider 79 year old female with PMH significant for HFrEF, CAD, hypothyroidism, hypertension, hyperlipidemia, asymptomatic carotid artery stenosis, peripheral vascular disease, recurrent cellulitis, depression and anxiety who presented to [facility] On 02/23/2025 as a direct admit transferred from [facility] for a right hip fracture. Patient reports that she was folding and putting away laundry last night when she fell onto her right hip. Believes that she did hit her head but denies any loss of consciousness. Denies feeling dizzy or lightheaded prior to fall. Denies falling over any object. Admits she was drinking wine last night. After falling, she was unable to get herself up and used her watch to call her daughter for assistance. Her daughter arrived and called 911 and she was taken to [facility]. Records reviewed from [facility]: -CT head without contrast: 1. No evidence of acute intracranial abnormality is demonstrated 2. Chronic microvascular ischemic changes-stable 3. Cerebral atrophy-stable -XR hip 1 V w AP pelvis right: 1. Subcapital fracture right femoral neck with impaction 2. Diffuse osteoporosis 3. Interval new -CT spine cervical without contrast: 1. No acute fracture or subluxation in the cervical spine 2. Cervical spondylosis-stable 3. Old compression collapse with anterior wedging of T2 vertebral body -CBC: WBC 8.4, RBC 2.57, Hgb 7.9, Hct 25, MCV 97.3, MCH 30.7, MCHC 31.6, RDW-SD 53, RDW-CV 15.1, Plt 293, MPV 9.8 -CMP: eGFR 38, Glu 140, BUN 29, Creatinine 1.4, Protein 7.3, Albumin 3.8, Globulin 3.5, Calcium 9.2, Total Bili 0.2, Sodium 138, Potassium 3.9, Chloride 109, CO2 19, Alk Phos 82, AST 23, ALT 26 -Mag 2.2 -Ethanol level: 147 Patient was examined at bedside. She reports 7/10 pain in her right hip. Was feeling nauseous and did vomit dark brown emesis. Notes she had an episode of severe RUQ pain last night that resolved spontaneously. Denies headache, dizziness, chest pain, SOB, abdominal pain, diarrhea. Reports she takes plavix but denies anticoagulation. Notes she used to fall a lot but this has been better lately. Lives at home alone. Uses a walker and a cane for ambulation. Admits to smoking cigarettes daily and daily alcohol use consisting of 2 glasses of wine. Also takes ativan as needed for tremors less than daily. Patient's daughter arrived and shared that patient was hospitalized about 1.5 years ago for CHF and flash pulmonary edema. Has been doing better since being started on heart medications. Follows with Cardiology through [facility] in [place]. Daughter notes cognitive decline since this hospitalization but notes that patient is at her baseline. Agrees that patient has not fallen recently, previous to admission 1.5 years ago was falling frequently. Notes she has extensive vascular disease in her right leg that patient follows with Dr Nelson for and was recommended to have vascular surgery, which patient declined. Also reports patient drinks a lot of wine daily and has gone through elective withdrawal in the past. Denies alcohol withdrawal seizures. Admission Exam Per Admitting Provider See H&P Discharge Exam Constitutional: Alert, nontoxic HEENT: Mucous membranes moist. Lungs: Clear to auscultation, decreased, no wheezes rales or rhonchi CV: S1-S2, regular Abdomen: Soft, nontender, nondistended Extremities: No significant edema, surgical dressing dry Neuro: No focal deficits Psych: Cooperative, normal mood Updated Medication List Medication Instructions Recorded Confirmed Type atorvastatin 40 mg tablet 40 mg PO DAILY 02/23/25 02/23/25 History ciprofloxacin HCl 500 mg tablet 500 mg PO Q12H 02/23/25 02/23/25 History (Cipro) clopidogrel 75 mg tablet 75 mg PO DAILY 02/23/25 02/23/25 History coQ10 (ubiquinol) 100 mg capsule 100 mg PO BID 02/23/25 02/23/25 History duloxetine 30 mg capsule,delayed 30 mg PO DAILY 02/23/25 02/23/25 History release ferrous gluconate 324 mg (38 mg 324 mg PO DAILY 02/23/25 02/23/25 History iron) tablet furosemide 20 mg tablet 20 mg PO DAILY 02/23/25 02/23/25 History levothyroxine 50 mcg tablet 50 mcg PO DAILY 02/23/25 02/23/25 History lorazepam 0.5 mg tablet 0.5 mg PO DAILY PRN rls 02/23/25 02/23/25 History magnesium glycinate 100 mg (as 200 mg PO DAILY 02/23/25 02/23/25 History glycinate) tablet metoprolol succinate 25 mg 25 mg PO DAILY 02/23/25 02/23/25 History tablet,extended release 24 hr sacubitril 49 mg-valsartan 51 mg 1 tab PO BID 02/23/25 02/23/25 History tablet (Entresto) spironolactone 25 mg tablet 25 mg PO DAILY 02/23/25 02/23/25 History tiotropium bromide 2.5 2 inh inhalation QAM PRN 02/23/25 02/23/25 History mcg/actuation mist for inhalation sob/wheezing (Spiriva Respimat) vitamin B complex 1 cap PO DAILY 02/23/25 02/23/25 History acetaminophen 500 mg tablet 1,000 mg (2 x 500 mg) PO TID #240 02/26/25 Rx (Tylenol Extra Strength) tabs oxycodone 5 mg tablet 5 mg PO Q3H PRN pain #10 tabs 02/26/25 Rx pantoprazole 40 mg tablet,delayed 40 mg PO DAILY #30 tabs 02/26/25 Rx release polyethylene glycol 3350 17 gram 17 g PO DAILY #30 ea 02/26/25 Rx oral powder packet (Miralax) rivaroxaban 10 mg tablet (Xarelto) 10 mg PO DAILY 35 days #35 tabs 02/26/25 Rx Hospital Stay Data Consultations 02/23/25 13:09 Consult Orthopedic Surgery Routine 02/23/25 17:13 Consult Gastroenterology Routine Procedures Performed Operation Date: 02/24/25 16:30 <No data on this case meets the specified criteria> Diagnostic Imagining Performed 02/23/25 14:35 US RUQ [US liver] Urgent Reviewed imaging, laboratory and diagnostic studies. Pertinent findings as below. WBC 6.6 Hemoglobin 8.8, improving Creatinine 1.25 Folate 12. 2 8 Vitamin B12 388 Ultrasound of the liver showed some mild fatty infiltration, no significant gallbladder abnormalities. EGD Impression: - Small hiatal hernia. - LA Grade C reflux esophagitis with no bleeding. - Three non-bleeding angioectasias in the stomach. - Gastritis, characterized by erythema. Biopsied. - Nodular erythema mucosa in the duodenal bulb. H. pylori negative on pathology Pending Results Patient Have Any Pending Studies at Discharge: No Discharge Instructions Given to Patient (Per Discharging Provider) ACTIVITY RECOMMENDATIONS: Diet: * You may resume previous diet. Physical Therapy: * Aggressive physical therapy is not usually needed. You will learn to take care of yourself safely and walk. * Follow the "Hip Precautions Instructions." * In some cases, the social media senior associate at the hospital will arrange to have a therapist come to your house for the first couple of weeks to help you learn these skills. * You need to practice on your own or with the help of a family member as needed. * When you learn these skills, most of the therapy can be done on your own. Home Exercise: * You were shown a series of exercises in the hospital. Do these exercises three to four times each day including the exercises you were shown in physical therapy. Walking: * Get up and walk several times each day. For the first four weeks, try not to stand or walk for more than one hour at a time. If you do stand or walk for more than one hour, you will not hurt anything, but your leg will likely swell. * As you feel comfortable, you may change from the walker or crutches to a cane and then to independent walking. MEDICATIONS: New Medicine: * You will likely be taking one or more of these medicines: 1. Xarelto - Thins your blood to lessen the chance of forming a blood clot. * The most common side effects of pain medicine and iron are nausea and constipation. If nausea or constipation is too much of a problem or if you have any questions about your new medicines or doses, call [facility] at . We will try to help you manage these issues. "VERY IMPORTANT TO READ AND REVIEW" Pain: * The immediate post-operative period after hip replacement surgery is often quite painful. * You are given a prescription for pain medicine. You should take it, as directed, when you need it, especially before physical therapy and before going to bed. Pain that interferes with sleep is very common and can last several months. * You will likely need pain medicine for the first two to four weeks. It will not stop all of the pain. The pain will lessen and as you feel better, you may change to milder pain medicine such as Tylenol. * The most common side effects of pain medicine are nausea and constipation, so don't take more than you need. SPECIAL CARE INSTRUCTIONS: TEDs/Elastic Stockings: * The white elastic stockings help limit swelling and prevent blood clots from forming in your legs. The more you wear them, the more they work. * Wear them for six weeks. Incision Site Care: * Remove dressing postoperative day 2 and then shower. Keep direct shower pressure off the incision site. * After showering, cover krystal with dry gauze and change daily or more frequently if the dressing is getting saturated with drainage. * May completely stop using bandage if wound is dry and no drainage * Krystal are removed between 2 and 3 weeks post-op. If your follow-up appointment is made before 2 weeks, please have your appointment re- scheduled. It is too early to remove the krystal. Prevention of Infection: * Take antibiotics one hour before any dental cleaning, dental work, urological procedure, gastrointestinal procedure or any invasive surgery in order to prevent your new joint from getting infected. * You may get the antibiotics from the doctor performing the procedure or you may call our office at before and we will call in a prescription to the pharmacy of your choice. Things to Watch For: * Drainage from the incision site that occurs more than one week after your surgery. * Severely increased leg pain or swelling. * Increased redness at the incision site. * Fever above 102 degrees Fahrenheit. * Unusual chest pain or shortness of breath. * Unusual pain or burning with urination. Call [facility] at with any of the above problems or if you have any questions about your medicines or recovery. FOLLOW UP VISIT: Make an appointment to see your doctor for approximately two weeks after surgery for a progress check and staple removal by calling the office at . Total Time Total Time Spent Total Time Spent (In Minutes): 38
--- NOTE | 2025-02-26 11:18 | Orthopedic Progress Note ---
Date of Service February 26, 2025 Assessment & Plan (1) Status post hemiarthroplasty of right hip: (2) Displaced fracture of right femoral neck: Plan 79-year-old female POD# 1 s/p right hip bipolar hemiarthroplasty due to femoral neck fracture. Orthopedically, doing well. Pain is well-controlled. Plan: 1. DVT prophylaxis w/ SILVIO hose, SCDs, ASA 81 mg BID. 2. PT/OT as tolerated. WBAT on RLE w/ assistive device as needed. 3. Pain well-controlled continue current regimen. 4. Medical management as per the primary medicine service. 5. Dressing change on POD #2. 6. Disposition - orthopedically okay for discharge once she is medically stable. Per case management, plan is for [facility] pending auth. 7. Follow-up with Dr. Verdugo's team 2 to 3 weeks postop. Subjective .Active Problems: S/p right hip hemiarthroplasty POD 2 79y/o female s/p right hip hemiarthroplasty. Doing well overall, pain managed and improved function. Denies fever/chills, chest pain/SOB, nausea/vomiting. Otherwise no complaints. Review of Systems All systems reviewed & are unremarkable except as noted in HPI & below. Physical Exam . Right hip surgical dressing CDI, not removed for exam. Otherwise no obvious deformity or overlying skin changes. Diffuse TTP proximal thigh and hip region. Otherwise no specific tenderness of distal thigh, lower leg, foot/ankle. AROM hip flexion intact. AROM foot/ankle intact. Sensation intact plantar/dorsal foot. Brisk capillary refill. Results & Data Results & Data Laboratory Results . Diagnostic Findings . PG Care Time/CCT Total # of Minutes Spent Total Time Spent with Patient: Total time spent is greater than 50% in coordination of care (as documented) at patient's floor/unit and/or counseling patient: Coding Level of Care Code 67660 Post Operative Follow-Up Diagnoses Status post hemiarthroplasty of right hip Z96.641 Displaced fracture of right femoral neck S72.001A
[2025-02-26 12:17] VITALS: BP 103/61; PULSE 73
--- NOTE | 2025-02-26 14:27 | Electrocardiogram Report ---
Test Reason : Blood Pressure : */* mmHG Vent. Rate : 70 BPM Atrial Rate : 70 BPM P-R Int : 152 ms QRS Dur : 84 ms QT Int : 412 ms P-R-T Axes : 52 62 74 degrees QTcB Int : 444 ms Sinus rhythm with Premature supraventricular complexes Otherwise normal ECG When compared with ECG of 29-Jan-2008 15:58, No significant change Confirmed by Ok Caicedo ([id number]) on 02/26/2025 2:27:03 PM Referred By: Haris Mcclain Confirmed By: Ok Caicedo
== END 2025-02-26 13:30 | DRG 522 ==
LOC: 3W 12:50 → SUATTDRO 12:50 → 1E 15:59 → 2N 02-24 17:31

== ENCOUNTER 2025-03-02 19:44 | Inpatient (IN) ==
[2025-03-02] MEDS ORDERED: SODIUM CHLORIDE 0.9% 100 ML IV PRN (20:07)
[2025-03-02 20:35] LABS: Hematocrit (blood only) 23.7 % (37.0-47.0); Hemoglobin 7.3 g/dl (12.0-16.0); Immature Granulocytes # (auto) 0.08 K/uL (0.01-0.20); Immature Granulocytes % (auto) 1.0 %; Mean Corpuscular Hemoglobin 28.6 pg (25.0-34.0); Mean Corpuscular Volume 92.9 fL (80.0-100.0); Platelet Count 373 K/uL (130-400); RDW Standard Deviation 54.2 fL (36.4-46.3); Red Blood Count 2.55 M/uL (4.20-5.40); White Blood Count 7.78 K/ul (4.8-10.8)
--- NOTE | 2025-03-02 20:35 | Emergency Department Note ---
Impression & Plan Acute upper gastrointestinal bleeding, Anemia requiring transfusions ED Provider Note HISTORY OF PRESENT ILLNESS: Patient is an 79-year-old female presenting with hematemesis. Patient reports that she was feeling generally unwell at dinner today and did not eat dinner because she was feeling nauseous. Reports she went to the bathroom and around 1830 today and had a bowel movement. She states that she "noted a little bit of blood" with the bowel movement. She states she has a history of anemia and takes iron pills, but her stool looked a different color than it normally does. She states that she then proceeded to have an episode of vomiting and her vomit was bright red in color. She had about 220 cc of bloody emesis per the report from the facility. Patient is on Plavix. She was given Zofran prior to transport. Patient denies any lightheadedness or dizziness. Denies any chest pain or shortness of breath. Denies any abdominal pain. Reports feeling nauseous this time. ROS: as above PHYSICAL EXAM: Constitutional: Patient appears in no acute distress. HENT: Head: Normocephalic and atraumatic. Eyes: EOMI, PERRL Mouth/Throat: Mucous membranes moist. Neck: Trachea midline. Neck supple. Cardiovascular: RRR, No murmurs, rubs or gallops. Intact distal pulses. Pulmonary/Chest: No respiratory distress. Breath sounds clear and equal bilaterally. No wheezes or rales. Abdominal: Abdomen soft, no tenderness, rebound or guarding. Musculoskeletal: No edema, tenderness or deformity noted. Skin: Warm and dry. No rash, erythema, or cyanosis. Pale in appearance. Psychiatric: Appropriate mood and affect for situation. Neurological: Alert and keenly responsive. CN II-XII grossly intact, moving all extremities equally and fully. MDM: - Vitals signs showed hypotension. - History obtained via patient. History as above. - Chronic conditions affecting care: HTN; HLD; hypothyroidism; carotid stenosis; hx of gastric AVM; HFrEF - Differential diagnoses include, but are not limited to: Bleeding gastric ulcer; gastric AVM bleeding; coagulopathy - Order placed for continuous cardiac monitoring. At this time, monitor showed rate of 85 bpm with normal sinus rhythm, per my interpretation. - External medical records reviewed. Discharge summary dated 02/26/2025 was reviewed. Patient was admitted that time after sustaining a fall at home and having a displaced fracture of the right femoral neck. - EKG image interpreted by myself showed normal sinus rhythm. Rate 82 bpm. QT 376. No acute ischemic changes. -[id number] BMP was obtained by nursing staff. Patient's [id number] hemoglobin was at 7.1. - Consented patient for blood transfusion. - 2 units PRBCs ordered, with 1 unit to transfuse now. - Protonix bolus and drip ordered. - Laboratory workup interpreted by myself showed normal WBC; anemia (Hgb 7.3); normal PT/INR; hyponatremia (Na 133); elevated BUN (29); normal creatinine; normal lactate - Discussed case with GI telephone engineer, Dr. Portillo, at 22:03. He agreed with blood transfusion and resuscitation and GI will be consulted in the morning. - Discussion was had with family preservation caseworker about patient's case and need for admission - Hospitalist, Dr. Mcclain, consulted for admission at 22:10 - Patient admitted to [facility] service for further evaluation and management. I have personally spent 62 minutes of critical care time in the direct management of this patient. This includes bedside care, interpretation of diagnostic studies, and testing, discussion with consultants, patient, and family members, and other required patient management activities. This 62 minutes is in excess of all separately billable procedures. ASSESSMENT AND PLAN: Diagnosis: Acute upper GI bleed; anemia requiring transfusions Plan: Admit Past Med/Surg History Problem List (Updated 03/02/25 @ 22:17 by Vita Jacques MD) Anemia requiring transfusions (Acute) Acute upper gastrointestinal bleeding (Acute) Status post hemiarthroplasty of right hip Fall from standing Acute blood loss anemia Chronic heart failure with reduced ejection fraction (HFrEF, <= 40%) Alcohol dependence Duodenal ulcer disease Gastric AVM Gastritis Hiatal hernia with gastroesophageal reflux disease and esophagitis Esophageal ulcer without bleeding Anemia Anxiety Depression Abdominal pain Alcohol withdrawal Displaced fracture of right femoral neck Varicose vein of leg Diastolic heart failure Carotid stenosis, asymptomatic Hypothyroidism Hypercholesteremia Hypertension Medical History Diabetes mellitus Idiopathic polyneuropathy Ulnar neuropathy at elbow of left upper extremity Muscle weakness (generalized) Arthritis Surgical History History of hysterectomy Hx of appendectomy Hx of tonsillectomy Family History Father Myocardial infarction Sister Lung cancer Social History (Updated 02/23/25 @ 15:15 by STEVE Dillon) Smoking Status: Current every day smoker Tobacco Type: Cigarettes Cigarettes Per Day: 15; Hx Alcohol Use: Yes Alcohol type: wine Alcohol Intake Frequency: 4 or More x per/Week Alcohol Intake Frequency Comment: two glasses daily Hx Substance Use: No Preferred Language: Bulgarian Communication Ability: Effective Box Gluer Required: No Beliefs That Will Affect Care: None Current Living Situation: Alone Feels Safe at Home: Yes Assistive Devices: Cane and Walker Allergies Allergies Allergy/AdvReac Type Severity Reaction Status Date / Time lactose Allergy Intermediate Diarrhea Verified 03/02/25 22:07 chlorhexidine Allergy Mild Rash Verified 03/02/25 22:07 ezetimibe [From Vytorin] Allergy Unknown Unknown Verified 03/02/25 22:07 simvastatin [From Vytorin] Allergy Unknown Unknown Verified 03/02/25 22:07 linagliptin [From Tradjenta] AdvReac Intermediate Diarrhea Verified 03/02/25 22:07 meperidine [From Demerol] AdvReac Intermediate Vomiting Verified 03/02/25 22:07 metformin AdvReac Intermediate Diarrhea Verified 03/02/25 22:07 paroxetine [From Paxil] AdvReac Intermediate hostility Verified 03/02/25 22:07 erythromycin base AdvReac Mild Nausea Verified 03/02/25 22:07 Home Meds Home Medications Medication Instructions Recorded Confirmed atorvastatin 40 mg tablet 40 mg PO DAILY 02/23/25 02/23/25 clopidogrel 75 mg tablet 75 mg PO DAILY 02/23/25 02/23/25 coQ10 (ubiquinol) 100 mg capsule 100 mg PO BID 02/23/25 02/23/25 duloxetine 30 mg capsule,delayed 30 mg PO DAILY 02/23/25 02/23/25 release ferrous gluconate 324 mg (38 mg 324 mg PO DAILY 02/23/25 02/23/25 iron) tablet levothyroxine 50 mcg tablet 50 mcg PO DAILY 02/23/25 02/23/25 lorazepam 0.5 mg tablet 0.5 mg PO DAILY PRN rls 02/23/25 02/23/25 magnesium glycinate 100 mg (as 200 mg PO DAILY 02/23/25 02/23/25 glycinate) tablet metoprolol succinate 25 mg 25 mg PO DAILY 02/23/25 02/23/25 tablet,extended release 24 hr sacubitril 49 mg-valsartan 51 mg 1 tab PO BID 02/23/25 02/23/25 tablet (Entresto) tiotropium bromide 2.5 2 inh inhalation QAM PRN 02/23/25 02/23/25 mcg/actuation mist for inhalation sob/wheezing (Spiriva Respimat) vitamin B complex 1 cap PO DAILY 02/23/25 02/23/25 Previous Rx's Medication Instructions Recorded acetaminophen 500 mg tablet 1,000 mg (2 x 500 mg) PO TID #240 02/26/25 (Tylenol Extra Strength) tabs oxycodone 5 mg tablet 5 mg PO Q3H PRN pain #10 tabs 02/26/25 pantoprazole 40 mg tablet,delayed 40 mg PO DAILY #30 tabs 02/26/25 release polyethylene glycol 3350 17 gram 17 g PO DAILY #30 ea 02/26/25 oral powder packet (Miralax) rivaroxaban 10 mg tablet (Xarelto) 10 mg PO DAILY 35 days #35 tabs 02/26/25 Results & Data (ED) Vital Signs Vital Signs - 24 hr 03/02/25 19:54 03/02/25 19:56 03/02/25 20:06 Temperature 36.7 C Temperature Source Oral Pulse Rate 92 H 85 82 Pulse Rate from SpO2 Sensor 80 Pulse Rhythm Regular Regular Respiratory Rate 18 20 20 Respiratory Effort / Characteristics Non-Labored Spontaneous Respiratory Depth Normal Blood Pressure 90/59 L 90/59 L Blood Pressure Mean 69 69 Blood Pressure Position Sitting Pulse Oximetry 97 99 98 Oxygen Delivery Method Room Air Room Air Sepsis Recent Fever Within 48 Hours No Sepsis New/Unexplained Change in Mental Status N/A Sepsis Action Taken by Nursing No Action Required 03/02/25 20:11 03/02/25 20:24 03/02/25 20:30 Temperature Temperature Source Pulse Rate 85 90 80 Pulse Rate from SpO2 Sensor 90 80 Pulse Rhythm Respiratory Rate 20 21 Respiratory Effort / Characteristics Respiratory Depth Blood Pressure 105/72 114/57 L Blood Pressure Mean 83 76 Blood Pressure Position Pulse Oximetry 99 100 Oxygen Delivery Method Sepsis Recent Fever Within 48 Hours Sepsis New/Unexplained Change in Mental Status Sepsis Action Taken by Nursing 03/02/25 20:57 03/02/25 21:18 Temperature Temperature Source Pulse Rate 87 82 Pulse Rate from SpO2 Sensor 87 83 Pulse Rhythm Respiratory Rate 17 21 Respiratory Effort / Characteristics Respiratory Depth Blood Pressure 97/53 L 99/56 L Blood Pressure Mean 67 70 Blood Pressure Position Pulse Oximetry 100 99 Oxygen Delivery Method Room Air Room Air Sepsis Recent Fever Within 48 Hours Sepsis New/Unexplained Change in Mental Status Sepsis Action Taken by Nursing Laboratory Data 03/02/25 20:00 03/02/25 20:00 Lab Results 03/02/25 03/02/25 03/02/25 Range/Units 20:00 20:04 20:11 WBC 7.78 (4.8-10.8) K/ul RBC 2.55 L (4.20-5.40) M/uL Hgb 7.3 L (12.0-16.0) g/dl POC Hgb 7.1 L (12.0-16.0) g/dl Hct 23.7 L (37.0-47.0) % POC Hct 21 L (37-47) % MCV 92.9 (80.0-100.0) fL MCH 28.6 (25.0-34.0) pg MCHC 30.8 L (32.0-36.0) g/dL RDW Std Deviation 54.2 H (36.4-46.3) fL RDW Coeff of Magdy 15.9 H (11.5-14.5) % Plt Count 373 (130-400) K/uL MPV 10.4 (9.4-12.4) fL Immature Gran % (Auto) 1.0 % Neut % (Auto) 75.8 % Lymph % (Auto) 9.6 % [place] % (Auto) 10.4 % Eos % (Auto) 2.2 % Baso % (Auto) 1.0 % Neut # (Auto) 5.89 (1.40-6.50) K/uL Lymph # (Auto) 0.75 L (1.20-3.40) K/uL [place] # (Auto) 0.81 H (0.11-0.59) K/uL Eos # (Auto) 0.17 (0.00-0.50) K/uL Baso # (Auto) 0.08 (0.00-0.20) K/uL Immature Gran # (Auto) 0.08 (0.01-0.20) K/uL Polychromasia 1+ PT 11.8 (9.0-12.0) Seconds INR 1.1 (0.9-1.1) POC Sodium 136 (135-144) mmol/L Sodium 133 L (136-145) mmol/L POC Potassium 4.4 (3.3-5.0) mmol/L Potassium 4.3 (3.5-5.1) mmol/L POC Chloride 105 (101-112) mmol/L Chloride 107 (98-107) mmol/L Carbon Dioxide 22 (21-32) mmol/L POC Total CO2 20 L (24-31) mmol/L Anion Gap 4 (3-11) POC Anion Gap 16.0 (16-25) mmol/L POC BUN 27 H (7-18) mg/dl BUN 29 H (6-23) mg/dl Creatinine 1.14 (0.6-1.2) mg/dl POC Creatinine 1.3 (0.6-1.3) mg/dl Est Cr Clr Drug Dosing 34.6 ml/min eGFR 48.36 BUN/Creatinine Ratio 25.4 H (10-20) Glucose 153 H (70-99(Fasting)) mg/dl POC Glucose (other) 143 H (70-99) mg/dl Lactate 1.1 (0.4-2.0) mmol/L Calcium 8.6 (8.6-10.3) mg/dl POC Ioniz Calcium [place]win 1.23 (1.12-1.32) mmol/l Total Bilirubin 0.4 (0.2-1.0) mg/dl AST 23 (13-39) U/L ALT 11 (7-52) U/L Alkaline Phosphatase 84 (34-104) U/L Troponin I High Sens 4.1 (0-14) pg/ml Total Protein 5.7 L (6.0-8.3) gm/dl Albumin 3.0 L (3.4-5.0) gm/dl Globulin 2.7 (2.5-4.0) gm/dl Albumin/Globulin Ratio 1.1 (0.9-2) Lipase 32 (11-82) U/L Blood Type O Positive Antibody Screen NEGATIVE Crossmatch See Detail Administered Medications Pantoprazole Sodium 40 mg/ (Dextrose) 100 mls @ 20 mls/hr IV Q5H MATTHEW Stop: 04/01/25 20:29 Last Admin: 03/02/25 20:45 Dose: 8 mg/hr, 20 mls/hr Documented By: GENARO Discontinued Medications Pantoprazole Sodium 80 mg/ (Dextrose) 120 mls @ 480 mls/hr IV NOW ONE Stop: 03/02/25 20:20 Last Infusion: 03/02/25 20:46 Dose: Infused Documented By: Admin: 03/02/25 20:25 Dose: 480 mls/hr Documented By: GENARO Pantoprazole Sodium (Pantoprazole Bolus/Drip) 1 each IV NOW STA Stop: 03/02/25 20:07 Last Admin: 03/02/25 20:36 Dose: Not Given Documented By: GENARO Discharge Plan Visit Data Chief Complaint: GI Bleed Stated Complaint: GI BLEED, DARK STOOLS AND EMESIS ED Provider: Vita Jacques Discharge Problem: Acute upper gastrointestinal bleeding, Anemia requiring transfusions Condition: Fair Forms Stand Alone Forms: My [facility] Prescriptions Prescriptions: No Action atorvastatin 40 mg tablet 40 mg PO DAILY vitamin B complex Capsule 1 cap PO DAILY duloxetine 30 mg capsule,delayed release(DR/EC) 30 mg PO DAILY ferrous gluconate 324 mg (38 mg iron) tablet 324 mg PO DAILY coQ10 (ubiquinol) 100 mg Capsule 100 mg PO BID Entresto 49-51 mg tablet 1 tab PO Q12H lorazepam 0.5 mg tablet 0.5 mg PO DAILY PRN (Reason: Anxiety) levothyroxine 50 mcg tablet 50 mcg PO DAILYBB metoprolol succinate 25 mg Tablet Extended Release 24 Hr 25 mg PO DAILY clopidogrel 75 mg tablet 75 mg PO DAILY polyethylene glycol 3350 [Miralax] 17 gram Powder In Packet 17 g PO DAILY Qty: 30 0RF oxycodone 5 mg Tablet 5 mg PO Q3H PRN (Reason: pain) Qty: 10 0RF Xarelto 10 mg tablet 10 mg PO DAILY 35 Days Qty: 35 0RF ondansetron HCl [Zofran] 4 mg Tablet 4 mg PO Q6H PRN (Reason: NAUSEA/VOMITING) sennosides-docusate sodium [Senokot-S] 8.6-50 mg Tablet 1 tab-cap PO QDL PRN (Reason: Constipation) bisacodyl 10 mg Suppository 10 mg MO DAILY PRN (Reason: Constipation) Fleet Enema 19-7 gram/118 mL Enema 118 ml MO DAILY PRN (Reason: Constipation) docusate sodium 100 mg Capsule 100 mg PO BID PRN (Reason: Constipation) polyethylene glycol 3350 [Miralax] 17 gram/dose Powder 17 g PO QDL PRN (Reason: Constipation) calcium carbonate-vitamin D3 [Calcium 500 + D] 500 mg-5 mcg (200 unit) Tablet 1 tab PO BID Incruse Ellipta 62.5 mcg/actuation Blister With Device 1 inh INHALATION DAILY PRN (Reason: Wheezing) naloxone 4 mg/actuation [place],Non-Aerosol 4 mg INTRANASAL DIRECTED PRN (Reason: OPIOD OVERDOSE) magnesium oxide 400 mg magnesium Tablet 200 mg PO DAILY acetaminophen [Tylenol Extra Strength] 500 mg tablet 1,000 mg PO Q8H pantoprazole 40 mg tablet,delayed release (DR/EC) 40 mg PO .AC BIDM Referrals Referrals: Ml Fragoso MD [Primary Care Provider] -
[2025-03-02] MEDS: PANTOPRAZOLE BOLUS/DRIP IV STA (20:36)
[2025-03-02 20:43] LABS: Alanine Aminotransferase 11.0 U/L (7-52); Albumin Globulin Ratio 1.1 (0.9-2); Alkaline Phosphatase 84.0 U/L (34-104); Anion Gap 4.0 (3-11); Bilirubin,Total 0.4 mg/dl (0.2-1.0); Blood Urea Nitrogen 29.0 mg/dl (6-23); Calcium 8.6 mg/dl (8.6-10.3); Carbon Dioxide 22.0 mmol/L (21-32); Chloride 107.0 mmol/L (98-107); Creatinine Clr Calc Pharmacy 34.6 ml/min; Globulin 2.7 gm/dl (2.5-4.0); Glucose 153.0 mg/dl (70-99(Fasting)); Lipase 32.0 U/L (11-82); Potassium 4.3 mmol/L (3.5-5.1); Sodium 133.0 mmol/L (136-145); Total Protein 5.7 gm/dl (6.0-8.3)
[2025-03-02] MEDS: PANTOprazole 40 MG in DEXTROSE 5% MINI-B 100 ML IV SCH (20:45)
[2025-03-02 20:54] LABS: Polychromasia 1+
[2025-03-02 21:07] LABS: INR 1.1 (0.9-1.1); Prothrombin Time 11.8 Seconds (9.0-12.0)
[2025-03-02 22:27] LABS: Appearance Urine Clear (Clear); Glucose Urine UA Negative (Negative)
[2025-03-03] MEDS ORDERED: ONDANSETRON INJ 2 MG/ML 2 ML VIAL IV PRN (01:34)
[2025-03-03] MEDS: SODIUM CHLORIDE 0.9% 1,000 ML IV SCH (04:06)
--- NOTE | 2025-03-03 05:06 | History & Physical Report ---
Date of Service March 02, 2025 Assessment & Plan (1) Acute upper gastrointestinal bleeding: Plan: 79-year-old female with past med history significant for heart failure with reduced EF, CAD, hypothyroidism, hypertension, hyperlipidemia, history of asymptomatic carotid artery stenosis, peripheral vascular disease, recurrent cellulitis, depression and anxiety was recently in the hospital for a fall and displaced fracture of the right femoral neck and status post right hip hemiarthroplasty and during that admission patient also had hematemesis and received 1 unit of PRBC and underwent EGD which showed extensive esophageal ulcers, gastritis and duodenal ulcers also there was question of alcohol withdrawal but patient did not require any treatment for alcohol withdrawal and she did okay and was discharged to rehab comes back today because of blood in the stools and also hematemesis. Around 6:30 pm today patient had a little bit of blood in the stools. Then she had a vomiting of about to 220 cc of bloody emesis. And patient was brought here. Denies any dizziness or lightheadedness. Denies any chest pain or shortness of breath. No abdominal pain currently. No headache. No runny nose or sore throat. No cough. No fevers. Micturating okay. Blood pressure somewhat soft. Ambulating with a walker.. Acute upper gastrointestinal bleeding Hematemesis Acute blood loss anemia Recent EGD showed esophageal ulcers, gastritis and duodenal ulcer Hemoglobin 7.3. Hemoglobin 8.8 prior to discharge on 02/26/2025 ER ordered 1 unit of PRBC and Protonix drip Will closely monitor the hemodynamics N.p.o., gentle fluids Telemetry GI consult for further recommendations History of chronic systolic CHF EF 35 to 40% echo done on 03/28 Holding Entresto And metoprolol for soft blood pressures. Patient was on Lasix and Aldactone last admission Lasix and Aldactone are not on med rec from rehab, probably held Patient not aware of diuretics being held Will hold diuretics for now as blood pressure is soft and closely monitor for volume overload as patient is on gentle fluids Recent right hip surgery Status post right hip hemiarthroplasty Was discharged on Xarelto which Will be be held for GI bleed PT OT when stable Restart of Xarelto when possible History of CAD Follows with [place] [facility] Holding Plavix for GI bleed Holding beta-aurora for soft blood pressures Restart of beta-aurora when blood pressure improves Chronic kidney disease Creatinine 1.1 Will follow labs Hyperlipidemia On statin Will restart as soon as possible Peripheral vascular disease Holding Plavix and statin for now Restart as soon as possible Depression with anxiety Holding all p.o. medications for now Restart as soon as possible Hypothyroidism Holding p.o. meds for now restart when possible DVT prophylaxis SCDs Disposition Telemetry Full code. History of Present Illness Chief Complaint: GI bleed Primary Care Provider: Ml Fragoso MD 79-year-old female with past med history significant for heart failure with reduced EF, CAD, hypothyroidism, hypertension, hyperlipidemia, history of asymptomatic carotid artery stenosis, peripheral vascular disease, recurrent cellulitis, depression and anxiety was recently in the hospital for a fall and displaced fracture of the right femoral neck and status post right hip hemiarthroplasty and during that admission patient also had hematemesis and received 1 unit of PRBC and underwent EGD which showed extensive esophageal ulcers, gastritis and duodenal ulcers also there was question of alcohol withdrawal but patient did not require any treatment for alcohol withdrawal and she did okay and was discharged to rehab comes back today because of blood in the stools and also hematemesis. Around 6:30 pm today patient had a little bit of blood in the stools. Then she had a vomiting of about to 220 cc of bloody emesis. And patient was brought here. Denies any dizziness or lightheadedness. Denies any chest pain or shortness of breath. No abdominal pain currently. No headache. No runny nose or sore throat. No cough. No fevers. Micturating okay. Blood pressure somewhat soft. Ambulating with a walker.. Past medical history. As mentioned above. Past surgical history. History of hysterectomy. Appendectomy. Tonsillectomy. Status post right hip hemiarthroplasty. EGD. Social history. Smokes 15 cigarettes daily. Alcohol 2 glass of wine's daily. No drug use. Family history. Father had [place]. Sister had lung cancer. Allergies Allergy/AdvReac Type Severity Reaction Status Date / Time lactose Allergy Intermediate Diarrhea Verified 03/02/25 22:07 chlorhexidine Allergy Mild Rash Verified 03/02/25 22:07 ezetimibe [From Vytorin] Allergy Unknown Unknown Verified 03/02/25 22:07 simvastatin [From Vytorin] Allergy Unknown Unknown Verified 03/02/25 22:07 linagliptin [From Tradjenta] AdvReac Intermediate Diarrhea Verified 03/02/25 22:07 meperidine [From Demerol] AdvReac Intermediate Vomiting Verified 03/02/25 22:07 metformin AdvReac Intermediate Diarrhea Verified 03/02/25 22:07 paroxetine [From Paxil] AdvReac Intermediate hostility Verified 03/02/25 22:07 erythromycin base AdvReac Mild Nausea Verified 03/02/25 22:07 Home Medications Medication Instructions Recorded Confirmed Type atorvastatin 40 mg tablet 40 mg PO DAILY 02/23/25 03/02/25 History clopidogrel 75 mg tablet 75 mg PO DAILY 02/23/25 03/02/25 History coQ10 (ubiquinol) 100 mg capsule 100 mg PO BID 02/23/25 03/02/25 History duloxetine 30 mg capsule,delayed 30 mg PO DAILY 02/23/25 03/02/25 History release ferrous gluconate 324 mg (38 mg 324 mg PO DAILY 02/23/25 03/02/25 History iron) tablet levothyroxine 50 mcg tablet 50 mcg PO DAILYBB 02/23/25 03/02/25 History lorazepam 0.5 mg tablet 0.5 mg PO DAILY PRN Anxiety 02/23/25 03/02/25 History metoprolol succinate 25 mg 25 mg PO DAILY 02/23/25 03/02/25 History tablet,extended release 24 hr sacubitril 49 mg-valsartan 51 mg 1 tab PO Q12H 02/23/25 03/02/25 History tablet (Entresto) vitamin B complex 1 cap PO DAILY 02/23/25 03/02/25 History oxycodone 5 mg tablet 5 mg PO Q3H PRN pain #10 tabs 02/26/25 03/02/25 Rx polyethylene glycol 3350 17 gram 17 g PO DAILY #30 ea 02/26/25 03/02/25 Rx oral powder packet (Miralax) rivaroxaban 10 mg tablet (Xarelto) 10 mg PO DAILY 35 days #35 tabs 02/26/25 Rx acetaminophen 500 mg tablet 1,000 mg PO Q8H 03/02/25 03/02/25 History (Tylenol Extra Strength) bisacodyl 10 mg rectal suppository 10 mg FL DAILY PRN Constipation 03/02/25 03/02/25 History calcium 500 mg (as 1 tab PO BID 03/02/25 03/02/25 History carbonate)-vitamin D3 5 mcg (200 unit) tablet (Calcium 500 + D) docusate sodium 100 mg capsule 100 mg PO BID PRN Constipation 03/02/25 03/02/25 History magnesium oxide 200 mg PO DAILY 03/02/25 03/02/25 History naloxone 4 mg/actuation nasal spray 4 mg intranasal DIRECTED PRN 03/02/25 03/02/25 History OPIOD OVERDOSE ondansetron HCl 4 mg tablet 4 mg PO Q6H PRN NAUSEA/VOMITING 03/02/25 03/02/25 History pantoprazole 40 mg tablet,delayed 40 mg PO .AC BIDM 03/02/25 03/02/25 History release polyethylene glycol 3350 17 17 g PO QDL PRN Constipation 03/02/25 03/02/25 History gram/dose oral powder (Miralax) sennosides 8.6 mg-docusate sodium 1 tab-cap PO QDL PRN Constipation 03/02/25 03/02/25 History 50 mg tablet (Senokot-S) sodium phosphates 19 gram-7 118 ml FL DAILY PRN Constipation 03/02/25 03/02/25 History gram/118 mL enema (Fleet Enema) umeclidinium 62.5 mcg/actuation 1 inh inhalation DAILY PRN Wheezing 03/02/25 03/02/25 History blister powder for inhalation (Incruse Ellipta) Past Med/Surg History Problem List (Updated 03/02/25 @ 22:17 by Vita Jacques MD) Anemia requiring transfusions (Acute) Acute upper gastrointestinal bleeding (Acute) Status post hemiarthroplasty of right hip Fall from standing Acute blood loss anemia Chronic heart failure with reduced ejection fraction (HFrEF, <= 40%) Alcohol dependence Duodenal ulcer disease Gastric AVM Gastritis Hiatal hernia with gastroesophageal reflux disease and esophagitis Esophageal ulcer without bleeding Anemia Anxiety Depression Abdominal pain Alcohol withdrawal Displaced fracture of right femoral neck Varicose vein of leg Diastolic heart failure Carotid stenosis, asymptomatic Hypothyroidism Hypercholesteremia Hypertension Medical History Diabetes mellitus Idiopathic polyneuropathy Ulnar neuropathy at elbow of left upper extremity Muscle weakness (generalized) Arthritis Surgical History History of hysterectomy Hx of appendectomy Hx of tonsillectomy Family History Father Myocardial infarction Sister Lung cancer Social History (Updated 02/23/25 @ 15:15 by STEVE Dillon) Smoking Status: Current every day smoker Tobacco Type: Cigarettes Cigarettes Per Day: 15; Second Hand Exposure: No; Do You Dip or Chew Tobacco: No; Tobacco Cessation Education Requested by Patient: No Hx Alcohol Use: Yes Alcohol type: wine Alcohol Intake Frequency: 4 or More x per/Week Alcohol Intake Frequency Comment: two glasses daily Hx Substance Use: No Preferred Language: German Communication Ability: Effective 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 ENT- oropharynx clear Neck- supple, no JVD. Lungs- clear to auscultation no wheezing or crackles Heart- regular rhythm; no murmur, no gallop. Abdomen- normal bowel sounds, soft, nontender, no distension. Extremities- no pretibial edema, right hip surgery site no obvious drainage or erythema seen Neuro- alert, oriented PERRL no facial palsy; no dysarthria; moves extremities Results & Data Results & Data Vital Signs (Past 12 Hours) Vital Signs Temp Pulse Pulse Resp BP BP Pulse Ox 03/02/25 22:55 36.9 C 83 20 93/50 L 98 03/02/25 22:27 36.9 C 87 24 91/49 L 94 03/02/25 22:06 108 H 25 H 100/60 100 03/02/25 21:18 82 21 99/56 L 99 03/02/25 20:57 87 17 97/53 L 100 03/02/25 20:30 80 21 114/57 L 100 03/02/25 20:24 90 20 105/72 99 03/02/25 20:11 85 03/02/25 20:06 82 20 98 03/02/25 19:56 36.7 C 85 20 90/59 L 99 03/02/25 19:54 92 H 18 90/59 L 97 O2 Del Method 03/02/25 22:55 Room Air 03/02/25 22:27 03/02/25 22:06 Room Air 03/02/25 21:18 Room Air 03/02/25 20:57 Room Air 03/02/25 20:30 03/02/25 20:24 03/02/25 20:11 03/02/25 20:06 Room Air 03/02/25 19:56 Room Air 03/02/25 19:54 Diagnostic Findings Laboratory Results WBC 7.78 K/ul (4.8-10.8) 03/02/25 20:00 RBC 2.55 M/uL (4.20-5.40) L 03/02/25 20:00 Hgb 7.3 g/dl (12.0-16.0) L 03/02/25 20:00 POC Hgb 7.1 g/dl (12.0-16.0) L 03/02/25 20:04 Hct 23.7 % (37.0-47.0) L 03/02/25 20:00 POC Hct 21 % (37-47) L 03/02/25 20:04 MCV 92.9 fL (80.0-100.0) 03/02/25 20:00 MCH 28.6 pg (25.0-34.0) 03/02/25 20:00 MCHC 30.8 g/dL (32.0-36.0) L 03/02/25 20:00 RDW Std Deviation 54.2 fL (36.4-46.3) H 03/02/25 20:00 RDW Coeff of Magdy 15.9 % (11.5-14.5) H 03/02/25 20:00 Plt Count 373 K/uL (130-400) 03/02/25 20:00 MPV 10.4 fL (9.4-12.4) 03/02/25 20:00 Immature Gran % (Auto) 1.0 % 03/02/25 20:00 Neut % (Auto) 75.8 % 03/02/25 20:00 Lymph % (Auto) 9.6 % 03/02/25 20:00 [place] % (Auto) 10.4 % 03/02/25 20:00 Eos % (Auto) 2.2 % 03/02/25 20:00 Baso % (Auto) 1.0 % 03/02/25 20:00 Neut # (Auto) 5.89 K/uL (1.40-6.50) 03/02/25 20:00 Lymph # (Auto) 0.75 K/uL (1.20-3.40) L 03/02/25 20:00 [place] # (Auto) 0.81 K/uL (0.11-0.59) H 03/02/25 20:00 Eos # (Auto) 0.17 K/uL (0.00-0.50) 03/02/25 20:00 Baso # (Auto) 0.08 K/uL (0.00-0.20) 03/02/25 20:00 Immature Gran # (Auto) 0.08 K/uL (0.01-0.20) 03/02/25 20:00 Polychromasia 1+ 03/02/25 20:00 PT 11.8 Seconds (9.0-12.0) 03/02/25 20:00 INR 1.1 (0.9-1.1) 03/02/25 20:00 POC Sodium 136 mmol/L (135-144) 03/02/25 20:04 Sodium 133 mmol/L (136-145) L 03/02/25 20:00 POC Potassium 4.4 mmol/L (3.3-5.0) 03/02/25 20:04 Potassium 4.3 mmol/L (3.5-5.1) 03/02/25 20:00 POC Chloride 105 mmol/L (101-112) 03/02/25 20:04 Chloride 107 mmol/L (98-107) 03/02/25 20:00 Carbon Dioxide 22 mmol/L (21-32) 03/02/25 20:00 POC Total CO2 20 mmol/L (24-31) L 03/02/25 20:04 Anion Gap 4 (3-11) 03/02/25 20:00 POC Anion Gap 16.0 mmol/L (16-25) 03/02/25 20:04 POC BUN 27 mg/dl (7-18) H 03/02/25 20:04 BUN 29 mg/dl (6-23) H 03/02/25 20:00 Creatinine 1.14 mg/dl (0.6-1.2) 03/02/25 20:00 POC Creatinine 1.3 mg/dl (0.6-1.3) 03/02/25 20:04 Est Cr Clr Drug Dosing 34.6 ml/min 03/02/25 20:00 eGFR 48.36 03/02/25 20:00 BUN/Creatinine Ratio 25.4 (10-20) H 03/02/25 20:00 Glucose 153 mg/dl (70-99(Fasting)) H 03/02/25 20:00 POC Glucose (other) 143 mg/dl (70-99) H 03/02/25 20:04 Lactate 1.1 mmol/L (0.4-2.0) 03/02/25 20:11 Calcium 8.6 mg/dl (8.6-10.3) 03/02/25 20:00 POC Ioniz Calcium [place] 1.23 mmol/l (1.12-1.32) 03/02/25 20: Total Bilirubin 0.4 mg/dl (0.2-1.0) 03/02/25 20:00 AST 23 U/L (13-39) 03/02/25 20:00 ALT 11 U/L (7-52) 03/02/25 20:00 Alkaline Phosphatase 84 U/L (34-104) 03/02/25 20:00 Troponin I High Sens 4.1 pg/ml (0-14) 03/02/25 20:00 Total Protein 5.7 gm/dl (6.0-8.3) L 03/02/25 20:00 Albumin 3.0 gm/dl (3.4-5.0) L 03/02/25 20:00 Globulin 2.7 gm/dl (2.5-4.0) 03/02/25 20:00 Albumin/Globulin Ratio 1.1 (0.9-2) 03/02/25 20:00 Lipase 32 U/L (11-82) 03/02/25 20:00 Urine Color Dark Yellow 03/02/25 22:06 Urine Appearance Clear (Clear) 03/02/25 22:06 Urine pH 5.0 (4.5-7.5) 03/02/25 22:06 Ur Specific [place] 1.019 (1.000-1.030) 03/02/25 22:06 Urine Protein Negative (Negative) 03/02/25 22:06 Urine Glucose (UA) Negative (Negative) 03/02/25 22:06 Urine Ketones Trace (Negative) H 03/02/25 22:06 Urine Blood Negative (Negative) 03/02/25 22:06 Urine Nitrite Negative (Negative) 03/02/25 22:06 Urine Bilirubin Negative (Negative) 03/02/25 22:06 Urine Urobilinogen Negative (Negative) 03/02/25 22:06 Ur Leukocyte Esterase Negative (Negative) 03/02/25 22:06 Urine Comment 03/02/25 22:06 Blood Type O Positive 03/02/25 20:11 Antibody Screen NEGATIVE 03/02/25 20:11 Crossmatch See Detail 03/02/25 20:11 ECG Additional Comments: ECG. Sinus rhythm with PACs with a rate of 82. No significant changes found. Code Status & VTE Plan VTE Prophylaxis Plan VTE Prophylaxis will be ordered: Yes
[2025-03-03] MEDS: ACETAMINOPHEN 1000 MG/100 ML IV IV ONE (05:51)
[2025-03-03 06:10] LABS: Hematocrit (blood only) 21.7 % (37.0-47.0); Hemoglobin 6.9 g/dl (12.0-16.0); Mean Corpuscular Hemoglobin 28.4 pg (25.0-34.0); Mean Corpuscular Volume 89.3 fL (80.0-100.0); Platelet Count 287 K/uL (130-400); RDW Standard Deviation 55.8 fL (36.4-46.3); Red Blood Count 2.43 M/uL (4.20-5.40); White Blood Count 5.23 K/ul (4.8-10.8)
[2025-03-03] MEDS ORDERED: SODIUM CHLORIDE 0.9% 100 ML IV PRN (06:13)
[2025-03-03 06:22] LABS: Immature Granulocytes # (auto) 0.03 K/uL (0.01-0.20); Immature Granulocytes % (auto) 0.6 %; Polychromasia 1+
[2025-03-03 06:34] LABS: Anion Gap 2.0 (3-11); Blood Urea Nitrogen 38.0 mg/dl (6-23); Calcium 8.1 mg/dl (8.6-10.3); Carbon Dioxide 23.0 mmol/L (21-32); Chloride 109.0 mmol/L (98-107); Creatinine Clr Calc Pharmacy 38.3 ml/min; Glucose 94.0 mg/dl (70-99(Fasting)); Magnesium 1.9 mg/dl (1.7-2.4); Potassium 4.5 mmol/L (3.5-5.1); Sodium 134.0 mmol/L (136-145)
--- NOTE | 2025-03-03 08:03 | Hospitalist Progress Note ---
Date of Service March 03, 2025 Assessment & Plan (1) Acute upper gastrointestinal bleeding: Plan: 79-year-old female with past med history significant for heart failure with reduced EF, CAD, hypothyroidism, hypertension, hyperlipidemia, history of asymptomatic carotid artery stenosis, peripheral vascular disease, recurrent cellulitis, depression and anxiety was recently in the hospital for a fall and displaced fracture of the right femoral neck and status post right hip hemiarthroplasty and during that admission patient also had hematemesis and received 1 unit of PRBC and underwent EGD which showed extensive esophageal ulcers, gastritis and duodenal ulcers also there was question of alcohol withdrawal but patient did not require any treatment for alcohol withdrawal and she did okay and was discharged to rehab comes back today because of blood in the stools and also hematemesis. Around 6:30 pm today patient had a little bit of blood in the stools. Then she had a vomiting of about to 220 cc of bloody emesis. And patient was brought here. Denies any dizziness or lightheadedness. Denies any chest pain or shortness of breath. No abdominal pain currently. No headache. No runny nose or sore throat. No cough. No fevers. Micturating okay. Blood pressure somewhat soft. Ambulating with a walker.. Acute upper gastrointestinal bleeding Hematemesis Acute blood loss anemia Recent EGD showed esophageal ulcers, gastritis and duodenal ulcer Hemoglobin 7.3 in ED Hemoglobin 8.8 prior to discharge on 02/26/2025 ER ordered 1 unit of PRBC and Protonix drip Will closely monitor the hemodynamics After first unit of pRBC Hgb 6.9 -> another unit of pRBC was ordered by amber Current Hgb 9.8 after 2 units of pRBCs N.p.o., gentle fluids Telemetry GI consult for further recommendations - plan for EGD later today History of chronic systolic CHF EF 35 to 40% echo done on 03/28 Holding Entresto And metoprolol for lower blood pressures. Patient was on Lasix and Aldactone last admission Lasix and Aldactone are not on med rec from rehab, probably held Patient not aware of diuretics being held Will hold diuretics for now as blood pressure is on lower side and closely monitor for volume overload as patient is on gentle fluids Recent right hip surgery Status post right hip hemiarthroplasty Was discharged on Xarelto which Will be be held for GI bleed PT OT when stable Restart of Xarelto when possible/ or on ASA BIS as discussed previously per GI communication note History of CAD Follows with [facility] Holding Plavix for GI bleed Holding beta-aurora for soft blood pressures Restart of beta-aurora when blood pressure improves Chronic kidney disease Creatinine 1 Will follow labs Hyperlipidemia On statin Will restart as soon as possible Peripheral vascular disease Holding Plavix and statin for now Restart as soon as possible Depression with anxiety Holding all p.o. medications for now Restart as soon as possible Hypothyroidism Holding p.o. meds for now restart when possible DVT prophylaxis SCDs Disposition Telemetry Full code. Admission and Anticipated Discharge Date Admission Date: March 02, 2025 Subjective Pt seen in follow up of GI bleed, recent R hip fx surgery Currently lying down in bed in NAD. Pt's daughter present at the bedside. Pt denies any abdominal pain, or any chest pain, denies shortness of breath or dizziness. Says she feels tired. GI consulted - plan for EGD later today Pt received 2 units of pRBC. Current Hgb 9.8, will cont. to closely monitor H&H Review of Systems Review of Systems: All systems reviewed & are unremarkable except as noted in Subjective Physical Exam Physical Exam: General- WD/WN elderly F in NAD Head- NC/AT Neck- supple, no JVD. Lungs- clear to auscultation no wheezing or crackles Heart- regular rhythm; + murmur Abdomen- normal bowel sounds, soft, nontender, no distension. Extremities- no pretibial edema, right hip surgery site no obvious drainage or erythema seen Neuro- alert, oriented PERRL no facial palsy; no dysarthria; moves extremities Results & Data Results & Data Vital Signs (Past 12 Hours) Vital Signs Temp Pulse Pulse Resp BP BP Pulse Ox 03/03/25 07:06 36.6 C 75 18 94/55 L 95 03/03/25 06:50 36.6 C 65 18 93/50 L 96 03/03/25 02:15 36.6 C 76 18 100/61 98 03/03/25 01:47 36.7 C 75 16 104/50 L 97 03/03/25 00:40 36.9 C 80 20 102/58 L 98 03/03/25 00:15 78 20 113/58 L 98 03/03/25 00:03 76 03/03/25 00:00 75 20 112/51 L 97 03/02/25 23:45 76 20 122/64 98 03/02/25 23:40 36.9 C 81 20 106/53 L 97 03/02/25 23:30 77 20 110/60 97 03/02/25 23:10 36.9 C 78 22 92/47 L 98 03/02/25 22:55 36.9 C 83 20 93/50 L 98 03/02/25 22:27 36.9 C 87 24 91/49 L 94 03/02/25 22:06 108 H 25 H 100/60 100 03/02/25 21:18 82 21 99/56 L 99 03/02/25 20:57 87 17 97/53 L 100 03/02/25 20:30 80 21 114/57 L 100 03/02/25 20:24 90 20 105/72 99 03/02/25 20:11 85 03/02/25 20:06 82 20 98 O2 Del Method 03/03/25 07:06 03/03/25 06:50 03/03/25 02:15 Room Air 03/03/25 01:47 03/03/25 00:40 03/03/25 00:15 Room Air 03/03/25 00:03 03/03/25 00:00 Room Air 03/02/25 23:45 Room Air 03/02/25 23:40 03/02/25 23:30 Room Air 03/02/25 23:10 03/02/25 22:55 Room Air 03/02/25 22:27 03/02/25 22:06 Room Air 03/02/25 21:18 Room Air 03/02/25 20:57 Room Air 03/02/25 20:30 03/02/25 20:24 03/02/25 20:11 03/02/25 20:06 Room Air Laboratory Results 03/03/25 03/03/25 03/02/25 Range/Units Unknown 05:39 22:06 WBC 5.23 (4.8-10.8) K/ul RBC 2.43 L (4.20-5.40) M/uL Hgb 6.9 L* (12.0-16.0) g/dl POC Hgb (12.0-16.0) g/dl Hct 21.7 L (37.0-47.0) % POC Hct (37-47) % MCV 89.3 (80.0-100.0) fL MCH 28.4 (25.0-34.0) pg MCHC 31.8 L (32.0-36.0) g/dL RDW Std Deviation 55.8 H (36.4-46.3) fL RDW Coeff of Magdy 17.1 H (11.5-14.5) % Plt Count 287 (130-400) K/uL MPV 10.4 (9.4-12.4) fL Immature Gran % (Auto) 0.6 % Neut % (Auto) 65.5 % Lymph % (Auto) 19.5 % [place] % (Auto) 11.1 % Eos % (Auto) 2.3 % Baso % (Auto) 1.0 % Neut # (Auto) 3.43 (1.40-6.50) K/uL Lymph # (Auto) 1.02 L (1.20-3.40) K/uL [place] # (Auto) 0.58 (0.11-0.59) K/uL Eos # (Auto) 0.12 (0.00-0.50) K/uL Baso # (Auto) 0.05 (0.00-0.20) K/uL Immature Gran # (Auto) 0.03 (0.01-0.20) K/uL Polychromasia 1+ PT (9.0-12.0) Seconds INR (0.9-1.1) POC Sodium (135-144) mmol/L Sodium 134 L (136-145) mmol/L POC Potassium (3.3-5.0) mmol/L Potassium 4.5 (3.5-5.1) mmol/L POC Chloride (101-112) mmol/L Chloride 109 H (98-107) mmol/L Carbon Dioxide 23 (21-32) mmol/L POC Total CO2 (24-31) mmol/L Anion Gap 2 L (3-11) POC Anion Gap (16-25) mmol/L POC BUN (7-18) mg/dl BUN 38 H (6-23) mg/dl Creatinine 1.03 (0.6-1.2) mg/dl POC Creatinine (0.6-1.3) mg/dl Est Cr Clr Drug Dosing 38.3 ml/min eGFR 54.63 BUN/Creatinine Ratio 36.9 H (10-20) Glucose 94 (70-99(Fasting)) mg/dl POC Glucose (other) (70-99) mg/dl Lactate (0.4-2.0) mmol/L Calcium 8.1 L (8.6-10.3) mg/dl POC Ioniz Calcium [place] (1.12-1.32) mmol/l Magnesium 1.9 (1.7-2.4) mg/dl Total Bilirubin (0.2-1.0) mg/dl AST (13-39) U/L ALT (7-52) U/L Alkaline Phosphatase (34-104) U/L Troponin I High Sens (0-14) pg/ml Total Protein (6.0-8.3) gm/dl Albumin (3.4-5.0) gm/dl Globulin (2.5-4.0) gm/dl Albumin/Globulin Ratio (0.9-2) Lipase (11-82) U/L Urine Color Dark Yellow Urine Appearance Clear (Clear) Urine pH 5.0 (4.5-7.5) Ur Specific [place] 1.019 (1.000-1.030) Urine Protein Negative (Negative) Urine Glucose (UA) Negative (Negative) Urine Ketones Trace H (Negative) Urine Blood Negative (Negative) Urine Nitrite Negative (Negative) Urine Bilirubin Negative (Negative) Urine Urobilinogen Negative (Negative) Ur Leukocyte Esterase Negative (Negative) Urine Comment Nasal Screen MRSA (PCR) Pending Blood Type Antibody Screen Crossmatch 03/02/25 03/02/25 03/02/25 Range/Units 20:11 20:04 20:00 WBC 7.78 (4.8-10.8) K/ul RBC 2.55 L (4.20-5.40) M/uL Hgb 7.3 L (12.0-16.0) g/dl POC Hgb 7.1 L (12.0-16.0) g/dl Hct 23.7 L (37.0-47.0) % POC Hct 21 L (37-47) % MCV 92.9 (80.0-100.0) fL MCH 28.6 (25.0-34.0) pg MCHC 30.8 L (32.0-36.0) g/dL RDW Std Deviation 54.2 H (36.4-46.3) fL RDW Coeff of Magdy 15.9 H (11.5-14.5) % Plt Count 373 (130-400) K/uL MPV 10.4 (9.4-12.4) fL Immature Gran % (Auto) 1.0 % Neut % (Auto) 75.8 % Lymph % (Auto) 9.6 % [place] % (Auto) 10.4 % Eos % (Auto) 2.2 % Baso % (Auto) 1.0 % Neut # (Auto) 5.89 (1.40-6.50) K/uL Lymph # (Auto) 0.75 L (1.20-3.40) K/uL [place] # (Auto) 0.81 H (0.11-0.59) K/uL Eos # (Auto) 0.17 (0.00-0.50) K/uL Baso # (Auto) 0.08 (0.00-0.20) K/uL Immature Gran # (Auto) 0.08 (0.01-0.20) K/uL Polychromasia 1+ PT 11.8 (9.0-12.0) Seconds INR 1.1 (0.9-1.1) POC Sodium 136 (135-144) mmol/L Sodium 133 L (136-145) mmol/L POC Potassium 4.4 (3.3-5.0) mmol/L Potassium 4.3 (3.5-5.1) mmol/L POC Chloride 105 (101-112) mmol/L Chloride 107 (98-107) mmol/L Carbon Dioxide 22 (21-32) mmol/L POC Total CO2 20 L (24-31) mmol/L Anion Gap 4 (3-11) POC Anion Gap 16.0 (16-25) mmol/L POC BUN 27 H (7-18) mg/dl BUN 29 H (6-23) mg/dl Creatinine 1.14 (0.6-1.2) mg/dl POC Creatinine 1.3 (0.6-1.3) mg/dl Est Cr Clr Drug Dosing 34.6 ml/min eGFR 48.36 BUN/Creatinine Ratio 25.4 H (10-20) Glucose 153 H (70-99(Fasting)) mg/dl POC Glucose (other) 143 H (70-99) mg/dl Lactate 1.1 (0.4-2.0) mmol/L Calcium 8.6 (8.6-10.3) mg/dl POC Ioniz Calcium [place] 1.23 (1.12-1.32) mmol/l Magnesium (1.7-2.4) mg/dl Total Bilirubin 0.4 (0.2-1.0) mg/dl AST 23 (13-39) U/L ALT 11 (7-52) U/L Alkaline Phosphatase 84 (34-104) U/L Troponin I High Sens 4.1 (0-14) pg/ml Total Protein 5.7 L (6.0-8.3) gm/dl Albumin 3.0 L (3.4-5.0) gm/dl Globulin 2.7 (2.5-4.0) gm/dl Albumin/Globulin Ratio 1.1 (0.9-2) Lipase 32 (11-82) U/L Urine Color Urine Appearance (Clear) Urine pH (4.5-7.5) Ur Specific [place] (1.000-1.030) Urine Protein (Negative) Urine Glucose (UA) (Negative) Urine Ketones (Negative) Urine Blood (Negative) Urine Nitrite (Negative) Urine Bilirubin (Negative) Urine Urobilinogen (Negative) Ur Leukocyte Esterase (Negative) Urine Comment Nasal Screen MRSA (PCR) Blood Type O Positive Antibody Screen NEGATIVE Crossmatch See Detail Medications Administered Current Inpatient Medications Pantoprazole Sodium 40 mg/ (Dextrose) 100 mls @ 20 mls/hr IV Q5H MATTHEW Stop: 04/01/25 20:29 Last Admin: 03/03/25 06:47 Dose: 8 mg/hr, 20 mls/hr Sodium Chloride (Nss) 1,000 mls @ 100 mls/hr IV .Q10H MATTHEW Stop: 03/06/25 01:33 Last Infusion: 03/03/25 07:58 Dose: 0 mls/hr Acetaminophen (Ofirmev) 1,000 mg in 100 mls @ 400 mls/hr IV Q8H PRN PRN Reason: Pain or Fever Stop: 03/06/25 05:10 Sodium Chloride (Nss) 100 mls @ 15 mls/hr IV .Q6H40M PRN PRN Reason: For Transfusion Duration Stop: 03/03/25 14:13 Ondansetron HCl (Ondansetron Inj 2 Mg/Ml 2 Ml Vial) 4 mg IV Q6H PRN PRN Reason: Nausea Stop: 04/02/25 01:33
[2025-03-03] MEDS: MoRPHine SULFATE 2 MG/ML CARP IV STA (09:15)
--- NOTE | 2025-03-03 10:22 | Gastrointestinal Consultation ---
Date of Consultation March 03, 2025 Assessment & Plan (1) Anemia requiring transfusions: 79 year old female with history of anxiety, depression, hypothyroidism, HTN, HFrEF, CAD, hyperlipidemia, asymptomatic carotid artery stenosis, peripheral vascular disease, recurrent cellulitis recent admission for management of a right hip fracture, anemia re-admitted w/ hematemesis EGD a few weeks ago w/ esophageal ulceration, AVMs, gastritis, duodenitis w/ ulcerations. NPO Repeat H&H EGD today if HGB permits IV PPI bolus/drip Trend H&H Monitor and document GI output Transfuse PRN per primary team Hold Plavix if able I spent a total of 60 minutes on the date of service in review of patient's record, and previously obtained information in person and appropriate medical visit, discussion and education of plan, with patient and/or caregiver, placing orders for tests/referral/procedures as medically necessary and documentation of pertinent clinical information in patient's medical records for their visit today. Supervising Physician Co-Signing Physician Notes I saw and examined this patient with our nurse practitioner and agree with her assessment and plan. Recently diagnosed with ulcerative esophagitis and duodenitis last week when presented with GI bleeding. Now presents with recurrent hematemesis and drop in her hemoglobin. Suspect related to last week's findings however will proceed with repeat endoscopy to confirm there were no missed lesions or more significant bleeding sites that need to be addressed. History of Present Illness Reason for Consultation: hematemesis Requesting Physician: Tristan Jc MD Attending Physician: Tristan Jc MD History of Present Illness 79 year old female with history of anxiety, depression, hypothyroidism, HTN, HFrEF, CAD, hyperlipidemia, asymptomatic carotid artery stenosis, peripheral vascular disease, recurrent cellulitis recent admission for management of a right hip fracture, developed anemia during admission and underwent EGD. Torres ggests since discharge she had being well. Yesterday developed abd pain, dry heaving/gaggin following but episodes of hematemesis. Reports indicate this was about 220 cc of bloody vomit. She notes she has had dark stools "all summer." She uses pepto frequently and is also on a a daily iron supplement. On Plavix - last dose thought to be yesterday Denies NSAIDs Daily ETOH use S/P 2 units RBC HGB 6.9 --> pending EGD w/ esophageal ulceration, AVMs, gastritis, duodenitis w/ ulcerations ABD US w/ fatty liver changes, CBD 7 mm Allergies Allergy/AdvReac Type Severity Reaction Status Date / Time lactose Allergy Intermediate Diarrhea Verified 03/02/25 22:07 chlorhexidine Allergy Mild Rash Verified 03/02/25 22:07 ezetimibe [From Vytorin] Allergy Unknown Unknown Verified 03/02/25 22:07 simvastatin [From Vytorin] Allergy Unknown Unknown Verified 03/02/25 22:07 linagliptin [From Tradjenta] AdvReac Intermediate Diarrhea Verified 03/02/25 22:07 meperidine [From Demerol] AdvReac Intermediate Vomiting Verified 03/02/25 22:07 metformin AdvReac Intermediate Diarrhea Verified 03/02/25 22:07 paroxetine [From Paxil] AdvReac Intermediate hostility Verified 03/02/25 22:07 erythromycin base AdvReac Mild Nausea Verified 03/02/25 22:07 Home Medications Medication Instructions Recorded Confirmed Type atorvastatin 40 mg tablet 40 mg PO DAILY 02/23/25 03/02/25 History clopidogrel 75 mg tablet 75 mg PO DAILY 02/23/25 03/02/25 History coQ10 (ubiquinol) 100 mg capsule 100 mg PO BID 02/23/25 03/02/25 History duloxetine 30 mg capsule,delayed 30 mg PO DAILY 02/23/25 03/02/25 History release ferrous gluconate 324 mg (38 mg 324 mg PO DAILY 02/23/25 03/02/25 History iron) tablet levothyroxine 50 mcg tablet 50 mcg PO DAILYBB 02/23/25 03/02/25 History lorazepam 0.5 mg tablet 0.5 mg PO DAILY PRN Anxiety 02/23/25 03/02/25 History metoprolol succinate 25 mg 25 mg PO DAILY 02/23/25 03/02/25 History tablet,extended release 24 hr sacubitril 49 mg-valsartan 51 mg 1 tab PO Q12H 02/23/25 03/02/25 History tablet (Entresto) vitamin B complex 1 cap PO DAILY 02/23/25 03/02/25 History oxycodone 5 mg tablet 5 mg PO Q3H PRN pain #10 tabs 02/26/25 03/02/25 Rx polyethylene glycol 3350 17 gram 17 g PO DAILY #30 ea 02/26/25 03/02/25 Rx oral powder packet (Miralax) rivaroxaban 10 mg tablet (Xarelto) 10 mg PO DAILY 35 days #35 tabs 02/26/25 03/02/25 Rx acetaminophen 500 mg tablet 1,000 mg PO Q8H 03/02/25 03/02/25 History (Tylenol Extra Strength) bisacodyl 10 mg rectal suppository 10 mg WA DAILY PRN Constipation 03/02/25 03/02/25 History calcium 500 mg (as 1 tab PO BID 03/02/25 03/02/25 History carbonate)-vitamin D3 5 mcg (200 unit) tablet (Calcium 500 + D) docusate sodium 100 mg capsule 100 mg PO BID PRN Constipation 03/02/25 03/02/25 History magnesium oxide 200 mg PO DAILY 03/02/25 03/02/25 History naloxone 4 mg/actuation nasal spray 4 mg intranasal DIRECTED PRN 03/02/25 03/02/25 History OPIOD OVERDOSE ondansetron HCl 4 mg tablet 4 mg PO Q6H PRN NAUSEA/VOMITING 03/02/25 03/02/25 History pantoprazole 40 mg tablet,delayed 40 mg PO .AC BIDM 03/02/25 03/02/25 History release polyethylene glycol 3350 17 17 g PO QDL PRN Constipation 03/02/25 03/02/25 History gram/dose oral powder (Miralax) sennosides 8.6 mg-docusate sodium 1 tab-cap PO QDL PRN Constipation 03/02/25 03/02/25 History 50 mg tablet (Senokot-S) sodium phosphates 19 gram-7 118 ml WA DAILY PRN Constipation 03/02/25 03/02/25 History gram/118 mL enema (Fleet Enema) umeclidinium 62.5 mcg/actuation 1 inh inhalation DAILY PRN Wheezing 03/02/25 03/02/25 History blister powder for inhalation (Incruse Ellipta) Patient History Medical History Diabetes mellitus Idiopathic polyneuropathy Ulnar neuropathy at elbow of left upper extremity Muscle weakness (generalized) Arthritis Surgical History History of hysterectomy Hx of appendectomy Hx of tonsillectomy Family History Father Myocardial infarction Sister Lung cancer Social History (Updated 02/23/25 @ 15:15 by STEVE Dillon) Smoking Status: Current every day smoker Tobacco Type: Cigarettes Cigarettes Per Day: 15; Second Hand Exposure: No; Do You Dip or Chew Tobacco: No; Tobacco Cessation Education Requested by Patient: No Hx Alcohol Use: Yes Alcohol type: wine Alcohol Intake Frequency: 4 or More x per/Week Alcohol Intake Frequency Comment: two glasses daily Hx Substance Use: No Preferred Language: [place] Communication Ability: Effective Vice President Quality Assurance Required: No Beliefs That Will Affect Care: None Current Living Situation: Rehab Current Living Situation Comment: [facility] Other Information That Helps Us Care for You: No Feels Safe at Home: Yes Safety Concerns: Feels Safe At This Time Assistive Devices: Cane and Walker Review of Systems Review of Systems: All other findings negative except as noted in HPI. Physical Exam Constitutional: WD/WN, vitals as above Respiratory: normal respiratory effort, lungs clear to auscultation Cardiovascular: Rate/Rhythm: regular rate Gastrointestinal (Abdomen): normal bowel sounds, soft, nontender, no hepatosplenomegaly Skin: no rashes, warm and dry Results & Data Vital Signs (Past 12 Hours) Vital Signs Temp Pulse Pulse Resp BP BP Pulse Ox 03/03/25 09:09 03/03/25 08:51 98.1 F 64 16 106/55 L 95 03/03/25 07:51 97.9 F 66 16 102/52 L 98 03/03/25 07:21 97.9 F 65 16 102/49 L 97 03/03/25 07:06 97.9 F 75 18 94/55 L 95 03/03/25 06:50 97.9 F 65 18 93/50 L 96 03/03/25 02:15 97.9 F 76 18 100/61 98 03/03/25 01:47 98.1 F 75 16 104/50 L 97 03/03/25 00:40 98.4 F 80 20 102/58 L 98 03/03/25 00:15 78 20 113/58 L 98 03/03/25 00:03 76 03/03/25 00:00 75 20 112/51 L 97 03/02/25 23:45 76 20 122/64 98 07/29/25 23:40 98.4 F 81 20 106/53 L 97 03/02/25 23:30 77 20 110/60 97 03/02/25 23:10 98.4 F 78 22 92/47 L 98 03/02/25 22:55 98.4 F 83 20 93/50 L 98 03/02/25 22:27 98.4 F 87 24 91/49 L 94 O2 Del Method 03/03/25 09:09 Room Air 03/03/25 08:51 03/03/25 07:51 03/03/25 07:21 03/03/25 07:06 03/03/25 06:50 03/03/25 02:15 Room Air 03/03/25 01:47 03/03/25 00:40 03/03/25 00:15 Room Air 03/03/25 00:03 03/03/25 00:00 Room Air 03/02/25 23:45 Room Air 03/02/25 23:40 03/02/25 23:30 Room Air 03/02/25 23:10 03/02/25 22:55 Room Air 03/02/25 22:27 Laboratory Results 03/03/25 03/03/25 03/02/25 Range/Units Unknown 05:39 22:06 WBC 5.23 (4.8-10.8) K/ul RBC 2.43 L (4.20-5.40) M/uL Hgb 6.9 L* (12.0-16.0) g/dl POC Hgb (12.0-16.0) g/dl Hct 21.7 L (37.0-47.0) % POC Hct (37-47) % MCV 89.3 (80.0-100.0) fL MCH 28.4 (25.0-34.0) pg MCHC 31.8 L (32.0-36.0) g/dL RDW Std Deviation 55.8 H (36.4-46.3) fL RDW Coeff of Magdy 17.1 H (11.5-14.5) % Plt Count 287 (130-400) K/uL MPV 10.4 (9.4-12.4) fL Immature Gran % (Auto) 0.6 % Neut % (Auto) 65.5 % Lymph % (Auto) 19.5 % [place] % (Auto) 11.1 % Eos % (Auto) 2.3 % Baso % (Auto) 1.0 % Neut # (Auto) 3.43 (1.40-6.50) K/uL Lymph # (Auto) 1.02 L (1.20-3.40) K/uL [place] # (Auto) 0.58 (0.11-0.59) K/uL Eos # (Auto) 0.12 (0.00-0.50) K/uL Baso # (Auto) 0.05 (0.00-0.20) K/uL Immature Gran # (Auto) 0.03 (0.01-0.20) K/uL Polychromasia 1+ PT (9.0-12.0) Seconds INR (0.9-1.1) POC Sodium (135-144) mmol/L Sodium 134 L (136-145) mmol/L POC Potassium (3.3-5.0) mmol/L Potassium 4.5 (3.5-5.1) mmol/L POC Chloride (101-112) mmol/L Chloride 109 H (98-107) mmol/L Carbon Dioxide 23 (21-32) mmol/L POC Total CO2 (24-31) mmol/L Anion Gap 2 L (3-11) POC Anion Gap (16-25) mmol/L POC BUN (7-18) mg/dl BUN 38 H (6-23) mg/dl Creatinine 1.03 (0.6-1.2) mg/dl POC Creatinine (0.6-1.3) mg/dl Est Cr Clr Drug Dosing 38.3 ml/min eGFR 54.63 BUN/Creatinine Ratio 36.9 H (10-20) Glucose 94 (70-99(Fasting)) mg/dl POC Glucose (other) (70-99) mg/dl Lactate (0.4-2.0) mmol/L Calcium 8.1 L (8.6-10.3) mg/dl POC Ioniz Calcium Erwin (1.12-1.32) mmol/l Magnesium 1.9 (1.7-2.4) mg/dl Total Bilirubin (0.2-1.0) mg/dl AST (13-39) U/L ALT (7-52) U/L Alkaline Phosphatase (34-104) U/L Troponin I High Sens (0-14) pg/ml Total Protein (6.0-8.3) gm/dl Albumin (3.4-5.0) gm/dl Globulin (2.5-4.0) gm/dl Albumin/Globulin Ratio (0.9-2) Lipase (11-82) U/L Urine Color Dark Yellow Urine Appearance Clear (Clear) Urine pH 5.0 (4.5-7.5) Ur Specific [place] 1.019 (1.000-1.030) Urine Protein Negative (Negative) Urine Glucose (UA) Negative (Negative) Urine Ketones Trace H (Negative) Urine Blood Negative (Negative) Urine Nitrite Negative (Negative) Urine Bilirubin Negative (Negative) Urine Urobilinogen Negative (Negative) Ur Leukocyte Esterase Negative (Negative) Urine Comment Nasal Screen MRSA (PCR) Negative (Negative) Blood Type Antibody Screen Crossmatch 03/02/25 03/02/25 03/02/25 Range/Units 20:11 20:04 20:00 WBC 7.78 (4.8-10.8) K/ul RBC 2.55 L (4.20-5.40) M/uL Hgb 7.3 L (12.0-16.0) g/dl POC Hgb 7.1 L (12.0-16.0) g/dl Hct 23.7 L (37.0-47.0) % POC Hct 21 L (37-47) % MCV 92.9 (80.0-100.0) fL MCH 28.6 (25.0-34.0) pg MCHC 30.8 L (32.0-36.0) g/dL RDW Std Deviation 54.2 H (36.4-46.3) fL RDW Coeff of Magdy 15.9 H (11.5-14.5) % Plt Count 373 (130-400) K/uL MPV 10.4 (9.4-12.4) fL Immature Gran % (Auto) 1.0 % Neut % (Auto) 75.8 % Lymph % (Auto) 9.6 % [place] % (Auto) 10.4 % Eos % (Auto) 2.2 % Baso % (Auto) 1.0 % Neut # (Auto) 5.89 (1.40-6.50) K/uL Lymph # (Auto) 0.75 L (1.20-3.40) K/uL [place] # (Auto) 0.81 H (0.11-0.59) K/uL Eos # (Auto) 0.17 (0.00-0.50) K/uL Baso # (Auto) 0.08 (0.00-0.20) K/uL Immature Gran # (Auto) 0.08 (0.01-0.20) K/uL Polychromasia 1+ PT 11.8 (9.0-12.0) Seconds INR 1.1 (0.9-1.1) POC Sodium 136 (135-144) mmol/L Sodium 133 L (136-145) mmol/L POC Potassium 4.4 (3.3-5.0) mmol/L Potassium 4.3 (3.5-5.1) mmol/L POC Chloride 105 (101-112) mmol/L Chloride 107 (98-107) mmol/L Carbon Dioxide 22 (21-32) mmol/L POC Total CO2 20 L (24-31) mmol/L Anion Gap 4 (3-11) POC Anion Gap 16.0 (16-25) mmol/L POC BUN 27 H (7-18) mg/dl BUN 29 H (6-23) mg/dl Creatinine 1.14 (0.6-1.2) mg/dl POC Creatinine 1.3 (0.6-1.3) mg/dl Est Cr Clr Drug Dosing 34.6 ml/min eGFR 48.36 BUN/Creatinine Ratio 25.4 H (10-20) Glucose 153 H (70-99(Fasting)) mg/dl POC Glucose (other) 143 H (70-99) mg/dl Lactate 1.1 (0.4-2.0) mmol/L Calcium 8.6 (8.6-10.3) mg/dl POC Ioniz Calcium [place] 1.23 (1.12-1.32) mmol/l Magnesium (1.7-2.4) mg/dl Total Bilirubin 0.4 (0.2-1.0) mg/dl AST 23 (13-39) U/L ALT 11 (7-52) U/L Alkaline Phosphatase 84 (34-104) U/L Troponin I High Sens 4.1 (0-14) pg/ml Total Protein 5.7 L (6.0-8.3) gm/dl Albumin 3.0 L (3.4-5.0) gm/dl Globulin 2.7 (2.5-4.0) gm/dl Albumin/Globulin Ratio 1.1 (0.9-2) Lipase 32 (11-82) U/L Urine Color Urine Appearance (Clear) Urine pH (4.5-7.5) Ur Specific [place] (1.000-1.030) Urine Protein (Negative) Urine Glucose (UA) (Negative) Urine Ketones (Negative) Urine Blood (Negative) Urine Nitrite (Negative) Urine Bilirubin (Negative) Urine Urobilinogen (Negative) Ur Leukocyte Esterase (Negative) Urine Comment Nasal Screen MRSA (PCR) (Negative) Blood Type O Positive Antibody Screen NEGATIVE Crossmatch See Detail PG Care Time/CCT Total # of Minutes Spent Total Time Spent with Patient: Total time spent is greater than 50% in coordination of care (as documented) at patient's floor/unit and/or counseling patient: Coding Level of Care Code 78067 INT INP/OBS CARE 255MIN Diagnoses Anemia requiring transfusions D64.9
[2025-03-03 11:06] LABS: Hematocrit (blood only) 29.5 % (37.0-47.0); Hemoglobin 9.8 g/dl (12.0-16.0)
--- NOTE | 2025-03-03 13:09 | Anesthesiology Consultation ---
Date of Service March 03, 2025 Assessment & Plan Chart Review Chart Review: Acceptable Risk for Surgery and Patient NOT seen in Pre Admission Testing ASA ASA3 Proposed Anesthesia Anesthesia Type: MAC Risk / Benefits Reviewed With: PT / POA / Parent / Guardian, Accepts Plan and Informed Consent Obtained History Surgery Operation Date: 03/03/25 17:50 Proposed Procedures p Esophagogastroduodenoscopy Dr. Bandar Portillo MD Height/Weight Height: 5 ft 3 in Weight: 63.1 kg Allergies Allergy/AdvReac Type Severity Reaction Status Date / Time lactose Allergy Intermediate Diarrhea Verified 03/02/25 22:07 chlorhexidine Allergy Mild Rash Verified 03/02/25 22:07 ezetimibe [From Vytorin] Allergy Unknown Unknown Verified 03/02/25 22:07 simvastatin [From Vytorin] Allergy Unknown Unknown Verified 03/02/25 22:07 linagliptin [From Tradjenta] AdvReac Intermediate Diarrhea Verified 03/02/25 22:07 meperidine [From Demerol] AdvReac Intermediate Vomiting Verified 03/02/25 22:07 metformin AdvReac Intermediate Diarrhea Verified 03/02/25 22:07 paroxetine [From Paxil] AdvReac Intermediate hostility Verified 03/02/25 22:07 erythromycin base AdvReac Mild Nausea Verified 03/02/25 22:07 Medications Home Medications Medication Instructions Recorded Confirmed Last Taken atorvastatin 40 mg tablet 40 mg PO DAILY 02/23/25 03/02/25 03/02/25 clopidogrel 75 mg tablet 75 mg PO DAILY 02/23/25 03/02/25 03/02/25 coQ10 (ubiquinol) 100 mg capsule 100 mg PO BID 02/23/25 03/02/25 03/02/25 duloxetine 30 mg capsule,delayed 30 mg PO DAILY 02/23/25 03/02/25 03/02/25 release ferrous gluconate 324 mg (38 mg 324 mg PO DAILY 02/23/25 03/02/25 03/02/25 iron) tablet levothyroxine 50 mcg tablet 50 mcg PO DAILYBB 02/23/25 03/02/25 03/02/25 lorazepam 0.5 mg tablet 0.5 mg PO DAILY PRN Anxiety 02/23/25 03/02/25 Unknown metoprolol succinate 25 mg 25 mg PO DAILY 02/23/25 03/02/25 03/02/25 tablet,extended release 24 hr sacubitril 49 mg-valsartan 51 mg 1 tab PO Q12H 02/23/25 03/02/25 03/02/25 tablet (Entresto) vitamin B complex 1 cap PO DAILY 02/23/25 03/02/25 03/02/25 oxycodone 5 mg tablet 5 mg PO Q3H PRN pain #10 tabs 02/26/25 03/02/25 Unknown polyethylene glycol 3350 17 gram 17 g PO DAILY #30 ea 02/26/25 03/02/25 03/02/25 oral powder packet (Miralax) rivaroxaban 10 mg tablet (Xarelto) 10 mg PO DAILY 35 days #35 tabs 02/26/25 03/02/25 03/02/25 acetaminophen 500 mg tablet 1,000 mg PO Q8H 03/02/25 03/02/25 03/02/25 (Tylenol Extra Strength) bisacodyl 10 mg rectal suppository 10 mg [place] DAILY PRN Constipation 03/02/25 03/02/25 Unknown calcium 500 mg (as 1 tab PO BID 03/02/25 03/02/25 03/02/25 carbonate)-vitamin D3 5 mcg (200 unit) tablet (Calcium 500 + D) docusate sodium 100 mg capsule 100 mg PO BID PRN Constipation 03/02/25 03/02/25 Unknown magnesium oxide 200 mg PO DAILY 03/02/25 03/02/25 03/02/25 naloxone 4 mg/actuation nasal spray 4 mg intranasal DIRECTED PRN 03/02/25 03/02/25 Unknown OPIOD OVERDOSE ondansetron HCl 4 mg tablet 4 mg PO Q6H PRN NAUSEA/VOMITING 03/02/25 03/02/25 Unknown pantoprazole 40 mg tablet,delayed 40 mg PO .AC BIDM 03/02/25 03/02/25 03/02/25 release polyethylene glycol 3350 17 17 g PO QDL PRN Constipation 03/02/25 03/02/25 Unknown gram/dose oral powder (Miralax) sennosides 8.6 mg-docusate sodium 1 tab-cap PO QDL PRN Constipation 03/02/25 03/02/25 Unknown 50 mg tablet (Senokot-S) sodium phosphates 19 gram-7 118 ml [place] DAILY PRN Constipation 03/02/25 03/02/25 Unknown gram/118 mL enema (Fleet Enema) umeclidinium 62.5 mcg/actuation 1 inh inhalation DAILY PRN Wheezing 03/02/25 03/02/25 Unknown blister powder for inhalation (Incruse Ellipta) Active Medications Generic Name Dose Route Start Last Admin Trade Name Freq PRN Reason Stop Dose Admin Pantoprazole Sodium 40 mg/ 100 mls @ 20 mls/hr 03/02/25 20:30 03/03/25 12:50 Dextrose IV 04/01/25 20:29 0 mg/hr Q5H MATTHEW 0 mls/hr Infusion 8 MG/HR Sodium Chloride 1,000 mls @ 100 mls/hr 03/03/25 01:34 03/03/25 12:50 Nss IV 03/06/25 01:33 0 mls/hr .Q10H MATTHEW Infusion Past Medical History Medical History Diabetes mellitus Idiopathic polyneuropathy Ulnar neuropathy at elbow of left upper extremity Muscle weakness (generalized) Arthritis Exercise / Class Metabolic Activity II 4-5 Yardwork/Stairs/Walk up hill Past Family History Family History Father Myocardial infarction Sister Lung cancer Past Surgical History Surgical History History of hysterectomy Hx of appendectomy Hx of tonsillectomy Past Anesthesia History No Hx of Anesthesia Complications and No Family Hx of Anesthesia Complications History of PONV No Hx of PONV and No Hx of Motion Sickness Social History Smoking Status: Current every day smoker Smoking cigarettes per day: 15 Do You Dip or Chew Tobacco: No Hx Alcohol Use: Yes Alcohol type: wine alcohol intake frequency: 0-2 drinks per day Hx Substance Use: No substance use type: does not use Review of Systems ROS Unobtainable: All systems reviewed & are unremarkable except as noted in HPI & below Physical Exam Vital Signs Last Vital Signs Temp 36.8 C 03/03/25 11:30 Pulse 69 03/03/25 11:30 Resp 19 03/03/25 11:30 BP 106/53 L 03/03/25 11:30 Pulse Ox 100 03/03/25 11:30 O2 Del Method Room Air 03/03/25 11:30 Constitutional WD/WN, vitals as above no acute distress Eyes PERRL, conjunctivae normal, anicteric sclerae ENMT external ear and nose normal, oropharynx normal Mouth: + dentition abnormality (missing) Thyromental Distance: > or= 3.5 Finger Breadths Mallampati Class: II Neck trachea midline, no thyromegaly normal visual inspection Respiratory normal respiratory effort, lungs clear to auscultation normal respiratory effort; no respiratory distress Auscultation: lungs clear to auscultation bilaterally Cardiovascular RRR, no murmur, no edema Rate/Rhythm: regular rate and regular rhythm Musculoskeletal Head/Neck/Chest: normocephalic and head atraumatic Spine: normal cervical ROM and no pain with cervical ROM Extremities: extremities normal to inspection and strength 5/5 throughout; full ROM of extremities Skin no rashes, warm and dry Neurologic moves all extremities Motor/Sensory: no sensory deficit Psychiatric A+Ox3, euthymic affect Orientation: alert and oriented x 3 Testing Laboratory Results 03/03/25 10:28 03/03/25 05:39 PT 11.8 Seconds (9.0-12.0) 03/02/25 20:00 INR 1.1 (0.9-1.1) 03/02/25 20:00 Urine Color Dark Yellow 03/02/25 22:06 Urine Appearance Clear (Clear) 03/02/25 22:06 Urine pH 5.0 (4.5-7.5) 03/02/25 22:06 Ur Specific [place] 1.019 (1.000-1.030) 03/02/25 22:06 Urine Protein Negative (Negative) 03/02/25 22:06 Urine Glucose (UA) Negative (Negative) 03/02/25 22:06 Urine Ketones Trace (Negative) H 03/02/25 22:06 Urine Nitrite Negative (Negative) 03/02/25 22:06 Ur Leukocyte Esterase Negative (Negative) 03/02/25 22:06 Blood Type O Positive 03/02/25 20:11 Antibody Screen NEGATIVE 03/02/25 20:11
--- NOTE | 2025-03-03 14:20 | GI REPORT ---
[facility] Patient: JAMES DANIELS : 1945 Sex at : Female Age: 79 Years Procedure: Upper GI endoscopy Date: 03/03/2025 Attending Physician: Ibrahima Portillo MD Referring MD: Tristan Jc Md Indications: - Suspected upper gastrointestinal bleeding Medications: - Monitored Anesthesia Care Complications: - No immediate complications. Procedure: - Prior to the procedure, a History and Physical was performed, and patient medications and allergies were reviewed. The patient's tolerance of previous anesthesia was also reviewed. The risks and benefits of the procedure and the sedation options and risks were discussed with the patient. All questions were answered, and informed consent was obtained. [Anticoagulant Agents] [Days Prior to Procedure]. [ASA Grade]. After reviewing the risks and benefits, the patient was deemed in satisfactory condition to undergo the procedure. - The EGD scope was introduced through the mouth and advanced to the second part of the duodenum. - The upper GI endoscopy was accomplished without difficulty. - The patient tolerated the procedure well. Findings: - The examined esophagus was normal. - Multiple small angioectasias with no bleeding were found in the gastric body. Coagulation for hemostasis using argon plasma was successful. - Mild mucosal changes characterized by erythema were found in the duodenal bulb. Impression: - Normal esophagus. - Multiple non-bleeding angioectasias in the stomach. Treated with argon plasma coagulation (APC). - Mucosal changes in the duodenum. - No specimens collected. Recommendation: - Resume previous diet. - Patient has a contact number available for emergencies. The signs and symptoms of potential delayed complications were discussed with the patient. Return to normal activities tomorrow. Written discharge instructions were provided to the patient. Procedure Code(s): - 90261, Esophagogastroduodenoscopy, flexible, transoral; with control of bleeding, any method Diagnosis Code(s): - K31.819, Angiodysplasia of stomach and duodenum without bleeding - K31.89, Other diseases of stomach and duodenum CPT(R) - 2023 copyright [employer]. All Rights Reserved. The CPT codes, CCI edits and ICD codes generated are intended as suggestions and were generated based on input data. These codes are preliminary and upon vice president business development review may be revised to meet current compliance and payer requirements. The provider is responsible for the final determination of appropriate codes, and modifiers. Ibrahima Portillo MD This document has been electronically signed. Note Initiated:03/03/2025 Note Completed:03/03/2025 2:18 PM \\[id number]
--- NOTE | 2025-03-03 15:28 | Anesthesiology Progress Note ---
Date of Service March 03, 2025 Anesthesia Post Procedure Vital Signs Vital Signs: Temp Pulse Pulse Pulse Resp BP BP 03/03/25 14:48 71 16 143/61 H 03/03/25 14:32 70 16 127/56 L 03/03/25 14:18 74 15 105/46 L 03/03/25 13:05 36.6 C 74 16 137/54 L 03/03/25 11:30 36.8 C 69 19 106/53 L 03/03/25 09:09 03/03/25 08:51 36.7 C 64 16 106/55 L 03/03/25 07:51 36.6 C 66 16 102/52 L 03/03/25 07:21 36.6 C 65 16 102/49 L 03/03/25 07:06 36.6 C 75 18 94/55 L 03/03/25 06:50 36.6 C 65 18 93/50 L 03/03/25 02:15 36.6 C 76 18 100/61 03/03/25 01:47 36.7 C 75 16 104/50 L 03/03/25 00:40 36.9 C 80 20 102/58 L 03/03/25 00:15 78 20 113/58 L 03/03/25 00:03 76 03/03/25 00:00 75 20 112/51 L 03/02/25 23:45 76 20 122/64 03/02/25 23:40 36.9 C 81 20 106/53 L 03/02/25 23:30 77 20 110/60 03/02/25 23:10 36.9 C 78 22 92/47 L 03/02/25 22:55 36.9 C 83 20 93/50 L 03/02/25 22:27 36.9 C 87 24 91/49 L 03/02/25 22:06 108 H 25 H 100/60 03/02/25 21:18 82 21 99/56 L 03/02/25 20:57 87 17 97/53 L 03/02/25 20:30 80 21 114/57 L 03/02/25 20:24 90 20 105/72 03/02/25 20:11 85 03/02/25 20:06 82 20 03/02/25 19:56 36.7 C 85 20 90/59 L 03/02/25 19:54 92 H 18 90/59 L Pulse Ox O2 Del Method 03/03/25 14:48 100 Room Air 03/03/25 14:32 99 Room Air 03/03/25 14:18 99 Room Air 03/03/25 13:05 97 Room Air 03/03/25 11:30 100 Room Air 03/03/25 09:09 Room Air 03/03/25 08:51 95 03/03/25 07:51 98 03/03/25 07:21 97 03/03/25 07:06 95 03/03/25 06:50 96 03/03/25 02:15 98 Room Air 03/03/25 01:47 97 03/03/25 00:40 98 03/03/25 00:15 98 Room Air 03/03/25 00:03 03/03/25 00:00 97 Room Air 03/02/25 23:45 98 Room Air 03/02/25 23:40 97 03/02/25 23:30 97 Room Air 03/02/25 23:10 98 03/02/25 22:55 98 Room Air 03/02/25 22:27 94 03/02/25 22:06 100 Room Air 03/02/25 21:18 99 Room Air 03/02/25 20:57 100 Room Air 03/02/25 20:30 100 03/02/25 20:24 99 03/02/25 20:11 03/02/25 20:06 98 Room Air 03/02/25 19:56 99 Room Air 03/02/25 19:54 97 Pain Intensity Bilateral Foot: Pain Intensity: 10 Transfer of Care Handoff Completed per policy Notes Mental Status: alert / awake / arousable and participated in evaluation Patient Amnestic to Procedure: Yes Nausea / Vomiting: adequately controlled Pain: adequately controlled Airway Patency, RR, SpO2: stable & adequate BP & HR: stable & adequate Hydration State: stable & adequate Anesthetic Complications: no major complications apparent and Pt Satisfied with anesthetic care
[2025-03-03] MEDS: LIDOCAINE 2% 2 ML VIAL/AMP(20MG/ML) INFIL ONE (16:29)
[2025-03-03] MEDS: PROPOFOL IV EMULSION 10 MG/ML 20 ML VIAL IV ONE (16:29)
[2025-03-03 17:25] LABS: Hematocrit (blood only) 28.9 % (37.0-47.0); Hemoglobin 9.4 g/dl (12.0-16.0)
[2025-03-03] MEDS: ACETAMINOPHEN 1,000 MG/100 ML VIAL IV PRN (20:34)
[2025-03-03 22:57] LABS: Hematocrit (blood only) 27.0 % (37.0-47.0); Hemoglobin 8.9 g/dl (12.0-16.0)
[2025-03-04] MEDS: MoRPHine SULFATE 2 MG/ML CARP IV STA (01:06)
[2025-03-04] MEDS: MoRPHine SULFATE 4 MG/ML 1 ML CARP\\VIAL IV STA (03:17)
[2025-03-04 07:59] LABS: Hematocrit (blood only) 29.2 % (37.0-47.0); Hemoglobin 9.7 g/dl (12.0-16.0); Mean Corpuscular Hemoglobin 29.4 pg (25.0-34.0); Mean Corpuscular Volume 88.5 fL (80.0-100.0); Platelet Count 345 K/uL (130-400); RDW Standard Deviation 54.8 fL (36.4-46.3); Red Blood Count 3.30 M/uL (4.20-5.40); White Blood Count 4.35 K/ul (4.8-10.8)
[2025-03-04 08:16] LABS: Anion Gap 5.0 (3-11); Blood Urea Nitrogen 22.0 mg/dl (6-23); Calcium 8.7 mg/dl (8.6-10.3); Carbon Dioxide 23.0 mmol/L (21-32); Chloride 109.0 mmol/L (98-107); Creatinine Clr Calc Pharmacy 36.5 ml/min; Glucose 95.0 mg/dl (70-99(Fasting)); Magnesium 1.7 mg/dl (1.7-2.4); Potassium 3.9 mmol/L (3.5-5.1); Sodium 137.0 mmol/L (136-145)
[2025-03-04 08:41] VITALS: RESP 16
--- NOTE | 2025-03-04 09:34 | Gastroenterology Progress Note ---
Date of Service March 04, 2025 Assessment & Plan (1) Anemia requiring transfusions: (2) Gastric AVM: Plan Patient is feeling much improved from a GI standpoint. hgb improved. Case discussed with Dr Portillo. - can transition ppi drip to oral. - can restart anticoagulation if needed. - GI will sign off, reconsult as needed. Admission and Anticipated Discharge Date Admission Date: March 02, 2025 Supervising Physician Co-Signing Physician Notes I saw and examined this patient with our nurse practitioner and agree with her assessment and plan. Patient discharged prior to my ability to see here. By report was stable post endoscopic procedure. She knows to follow-up with GI office if any further issues. Subjective 79 year old female with history of anxiety, depression, hypothyroidism, HTN, HFrEF, CAD, hyperlipidemia, asymptomatic carotid artery stenosis, peripheral vascular disease, recurrent cellulitis recent admission for management of a right hip fracture, and anemia, re-admitted w/ hematemesis. Patient tells me that she has been having headaches and feet pain which are her main concerns today. no further nausea/vomiting. The remainder of the GI ROS were unremarkable. 03/04/25 hgb 9.7 (previously 8.9). EGD 03/03/25 - Normal esophagus. - Multiple non-bleeding angioectasias in the stomach. Treated with argon plasma coagulation (APC). - Mucosal changes in the duodenum. - No specimens collected. Review of Systems Review of Systems: All systems reviewed & are unremarkable except as noted in HPI & below Physical Exam Constitutional: WD/WN, vitals as above Respiratory: normal respiratory effort, lungs clear to auscultation Cardiovascular: Rate/Rhythm: regular rate and regular rhythm Gastrointestinal (Abdomen): normal bowel sounds, soft, nontender, no hepatosplenomegaly Psychiatric: Orientation: alert and oriented x 3 Results & Data Results & Data Vital Signs (Past 12 Hours) Vital Signs Temp Pulse Pulse Resp BP Pulse Ox O2 Del Method 03/04/25 08:30 Room Air 03/04/25 08:00 97.9 F 70 16 101/62 100 Room Air 03/04/25 07:11 67 03/04/25 02:55 98.1 F 75 18 122/74 98 Room Air 03/03/25 22:29 98.1 F 72 18 124/50 L 100 Room Air 03/03/25 21:46 77 Coding Level of Care Code 40433 SUB INP/OBS CARE MIN Diagnoses Anemia requiring transfusions D64.9 Gastric AVM K31.819
--- NOTE | 2025-03-04 11:08 | Discharge Summary ---
Date of Service March 04, 2025 Admission HPI Per Admitting Provider 79-year-old female with past med history significant for heart failure with reduced EF, CAD, hypothyroidism, hypertension, hyperlipidemia, history of asymptomatic carotid artery stenosis, peripheral vascular disease, recurrent cellulitis, depression and anxiety was recently in the hospital for a fall and displaced fracture of the right femoral neck and status post right hip hemiarthroplasty and during that admission patient also had hematemesis and received 1 unit of PRBC and underwent EGD which showed extensive esophageal ulcers, gastritis and duodenal ulcers also there was question of alcohol withdrawal but patient did not require any treatment for alcohol withdrawal and she did okay and was discharged to rehab comes back today because of blood in the stools and also hematemesis. Around 6:30 pm today patient had a little bit of blood in the stools. Then she had a vomiting of about to 220 cc of bloody emesis. And patient was brought here. Denies any dizziness or lightheadedness. Denies any chest pain or shortness of breath. No abdominal pain currently. No headache. No runny nose or sore throat. No cough. No fevers. Micturating okay. Blood pressure somewhat soft. Ambulating with a walker.. Past medical history. As mentioned above. Past surgical history. History of hysterectomy. Appendectomy. Tonsillectomy. Status post right hip hemiarthroplasty. EGD. Social history. Smokes 15 cigarettes daily. Alcohol 2 glass of wine's daily. No drug use. Family history. Father had NM. Sister had lung cancer. Admission Exam Per Admitting Provider General- Not in distress Head- atraumatic Eyes- PERRL. ENT- oropharynx clear Neck- supple, no JVD. Lungs- clear to auscultation no wheezing or crackles Heart- regular rhythm; no murmur, no gallop. Abdomen- normal bowel sounds, soft, nontender, no distension. Extremities- no pretibial edema, right hip surgery site no obvious drainage or erythema seen Neuro- alert, oriented PERRL no facial palsy; no dysarthria; moves extremities Principal Diagnosis GI bleed, anemia Discharge Exam General- WD/WN elderly F in NAD Head- NC/AT Neck- supple, no JVD. Lungs- clear to auscultation no wheezing or crackles Heart- regular rhythm; + murmur Abdomen- normal bowel sounds, soft, nontender, no distension. Extremities- no pretibial edema, right hip surgery site no obvious drainage or erythema seen Neuro- alert, oriented PERRL no facial palsy; no dysarthria; moves extremities Discharge Data Allergies Allergy/AdvReac Type Severity Reaction Status Date / Time lactose Allergy Intermediate Diarrhea Verified 03/02/25 22:07 chlorhexidine Allergy Mild Rash Verified 03/02/25 22:07 ezetimibe [From Vytorin] Allergy Unknown Unknown Verified 03/02/25 22:07 simvastatin [From Vytorin] Allergy Unknown Unknown Verified 03/02/25 22:07 linagliptin [From Tradjenta] AdvReac Intermediate Diarrhea Verified 03/02/25 22:07 meperidine [From Demerol] AdvReac Intermediate Vomiting Verified 03/02/25 22:07 metformin AdvReac Intermediate Diarrhea Verified 03/02/25 22:07 paroxetine [From Paxil] AdvReac Intermediate hostility Verified 03/02/25 22:07 erythromycin base AdvReac Mild Nausea Verified 03/02/25 22:07 Consultations 03/02/25 21:59 ED Decision to Admit Stat 03/03/25 08:00 Consult Gastroenterology Routine Procedures Performed Operation Date: 03/03/25 17:50 Actual Procedures p EGD Hemostasis - Ibrahima Portillo MD Hospital Course (1) Acute upper gastrointestinal bleedin-year-old female with past med history significant for heart failure with reduced EF, CAD, hypothyroidism, hypertension, hyperlipidemia, history of asymptomatic carotid artery stenosis, peripheral vascular disease, recurrent cellulitis, depression and anxiety was recently in the hospital for a fall and displaced fracture of the right femoral neck and status post right hip hemiarthroplasty and during that admission patient also had hematemesis and received 1 unit of PRBC and underwent EGD which showed extensive esophageal ulcers, gastritis and duodenal ulcers also there was question of alcohol withdrawal but patient did not require any treatment for alcohol withdrawal and she did okay and was discharged to rehab comes back today because of blood in the stools and also hematemesis. Around 6:30 pm today patient had a little bit of blood in the stools. Then she had a vomiting of about to 220 cc of bloody emesis. And patient was brought here. Denies any dizziness or lightheadedness. Denies any chest pain or shortness of breath. No abdominal pain currently. No headache. No runny nose or sore throat. No cough. No fevers. Micturating okay. Blood pressure somewhat soft. Ambulating with a walker.. Acute upper gastrointestinal bleeding Hematemesis Acute blood loss anemia Recent EGD showed esophageal ulcers, gastritis and duodenal ulcer Hemoglobin 7.3 in ED Hemoglobin 8.8 prior to discharge on 02/26/2025 ER ordered 1 unit of PRBC and Protonix drip Will closely monitor the hemodynamics After first unit of pRBC Hgb 6.9 -> another unit of pRBC was ordered by leadership development consultant Current Hgb 9.8 after 2 units of pRBCs N.p.o., gentle fluids Telemetry GI consult for further recommendations - now s/p EGD Findings: - The examined esophagus was normal. - Multiple small angioectasias with no bleeding were found in the gastric body. Coagulation for hemostasis using argon plasma was successful. - Mild mucosal changes characterized by erythema were found in the duodenal bulb. Impression: - Normal esophagus. - Multiple non-bleeding angioectasias in the stomach. Treated with argon plasma coagulation (APC). - Mucosal changes in the duodenum. - No specimens collected. Recommendation: - Resume previous diet. Discussed w/ GI today (03/04) ok to resume anticoagulation given recent ortho surgery. Per previous note ASA bid was recommended. Will have pt cont. w/ ASA BID, instead of xarelto. History of chronic systolic CHF EF 35 to 40% echo done on 03/28 Holding Entresto And metoprolol for lower blood pressures. Patient was on Lasix and Aldactone last admission Lasix and Aldactone are not on med rec from rehab, probably held Patient not aware of diuretics being held Will hold diuretics for now as blood pressure is on lower side and closely monitor for volume overload Recent right hip surgery Status post right hip hemiarthroplasty Was discharged on Xarelto, will DC on ASA BID instead (as per previous GI communication note) Plan is to go back to rehab ([facility]), discussed w/ provider there Dr. Oliveira History of CAD Follows with [place] [facility] Holding Plavix for GI bleed, ok to resume Holding beta-aurora for soft blood pressures Restart of beta-aurora when blood pressure improves Chronic kidney disease Creatinine 1 Will follow labs Hyperlipidemia On statin resume Peripheral vascular disease Holding Plavix and statin on admission, resume Depression with anxiety Holding all p.o. medications on admission, resume Hypothyroidism Holding p.o. meds on admission, resume Total Time Total Time Spent Total Time Spent (In Minutes): 40 Discharge Plan Discharge Items Patient Disposition: Transfer Acute Care Hospital Reason For Visit: GI BLEED Discharge Diagnosis: GI bleed, anemia Condition on Discharge: Fair Activity: Per Instructions section Non-emergency contact: Primary Care Provider, Surgeon and Specialist Call non-emergency contact if: you have any medication questions and your symptoms worsen Follow-up/Referrals: Ml Fragoso MD [Primary Care Provider] - Diet: Regular Addtl Attending Provider Instructions: Pt with recent R hip surgery, presented w/ GI bleed, anemia. Underwent EGD, now to be transferred back to rehab. Pending Studies at Discharge: No Stand-Alone Forms: My [facility] Skilled Items Patient informed of condition?: Yes DNR: No Discharge Level of Care: Acute rehab Communicable Disease: No Discharge Prognosis: Stable Lines: None Urinary Catheter: No Medications and DC Order Prescriptions: New aspirin [Ecotrin Low Strength] 81 mg tablet,delayed release (DR/EC) 81 mg PO BID Qty: 60 0RF Continued atorvastatin 40 mg tablet 40 mg PO DAILY vitamin B complex Capsule 1 cap PO DAILY duloxetine 30 mg capsule,delayed release(DR/EC) 30 mg PO DAILY ferrous gluconate 324 mg (38 mg iron) tablet 324 mg PO DAILY coQ10 (ubiquinol) 100 mg Capsule 100 mg PO BID lorazepam 0.5 mg tablet 0.5 mg PO DAILY PRN (Reason: Anxiety) levothyroxine 50 mcg tablet 50 mcg PO DAILYBB clopidogrel 75 mg tablet 75 mg PO DAILY polyethylene glycol 3350 [Miralax] 17 gram Powder In Packet 17 g PO DAILY Qty: 30 0RF oxycodone 5 mg Tablet 5 mg PO Q3H PRN (Reason: pain) Qty: 10 0RF ondansetron HCl [Zofran] 4 mg Tablet 4 mg PO Q6H PRN (Reason: NAUSEA/VOMITING) sennosides-docusate sodium [Senokot-S] 8.6-50 mg Tablet 1 tab-cap PO QDL PRN (Reason: Constipation) bisacodyl 10 mg Suppository 10 mg ME DAILY PRN (Reason: Constipation) Fleet Enema 19-7 gram/118 mL Enema 118 ml ME DAILY PRN (Reason: Constipation) docusate sodium 100 mg Capsule 100 mg PO BID PRN (Reason: Constipation) polyethylene glycol 3350 [Miralax] 17 gram/dose Powder 17 g PO QDL PRN (Reason: Constipation) calcium carbonate-vitamin D3 [Calcium 500 + D] 500 mg-5 mcg (200 unit) Tablet 1 tab PO BID Incruse Ellipta 62.5 mcg/actuation Blister With Device 1 inh INHALATION DAILY PRN (Reason: Wheezing) naloxone 4 mg/actuation [place],Non-Aerosol 4 mg INTRANASAL DIRECTED PRN (Reason: OPIOD OVERDOSE) magnesium oxide 400 mg magnesium Tablet 200 mg PO DAILY acetaminophen [Tylenol Extra Strength] 500 mg tablet 1,000 mg PO Q8H pantoprazole 40 mg tablet,delayed release (DR/EC) 40 mg PO .AC BIDM Held Entresto 49-51 mg tablet 1 tab PO Q12H Hold Instructions: Resume on 03/06/25. evaluate by physician when to resume metoprolol succinate 25 mg Tablet Extended Release 24 Hr 25 mg PO DAILY Hold Instructions: Resume on 03/06/25. evaluate by physician to see when to resume Discontinued Xarelto 10 mg tablet 10 mg PO DAILY 35 Days Qty: 35 0RF Discharge Orders: Discharge Order (Routine); Ordered 03/04/25 Ordered By: Tristan Jc Admission Data Admit Date/Time: 03/02/25 23:06 Attending Provider: Tristan Jc Admit Provider: Haris Mcclain Primary Care Provider: Ml Fragoso Other Providers: Haris Mcclain; Gerardo Callejas; Ty Merida; [facility] Other Interventions: Discharge Summary Assessment (RN) Last Done: 03/03/25 14:34
[2025-03-04 12:07] VITALS: BP 132/75; PULSE 74; TEMP 97.5; O2SAT 97
--- NOTE | 2025-03-06 05:52 | Electrocardiogram Report ---
Test Reason : Blood Pressure : */* mmHG Vent. Rate : 82 BPM Atrial Rate : 82 BPM P-R Int : 154 ms QRS Dur : 82 ms QT Int : 376 ms P-R-T Axes : 111 48 82 degrees QTcB Int : 439 ms Sinus rhythm with Premature atrial complexes Otherwise normal ECG When compared with ECG of 23-Feb-2025 15:11, No significant change was found Confirmed by Stuart Gunn ([id number]) on 03/06/2025 5:52:21 AM Referred By: REFERRED SELF Confirmed By: Stuart Gunn
== END 2025-03-04 14:15 | DRG 378 ==
LOC: ED 19:44 → SUATTDRO 23:06 → 2S 23:06